=== PATIENT | male | born 1955 | race Caucasian/White ===

== ENCOUNTER 2017-02-27 12:03 | Inpatient (IN) | payer MEDICAID, OTHER ==
[~2017-02-27] VITALS: Ht 182.9 cm; Wt 107.1 kg
[2017-02-27] VITALS (7 sets, daily range): BP systolic 73–95; BP diastolic 46–64
[2017-02-27] MEDS ORDERED: NS 500 ML IV ONE (12:45)
[2017-02-27] MEDS ORDERED: FURO20TA2 PO (12:51)
[2017-02-27] MEDS ORDERED: LISI-538 PO (12:51)
[2017-02-27] MEDS ORDERED: SIMV20TA2 PO (12:51)
[2017-02-27] MEDS ORDERED: RISP3TAB20 PO (12:51)
[2017-02-27] MEDS ORDERED: METF10004 PO (12:51)
[2017-02-27] MEDS ORDERED: POTA10CA PO (12:51)
[2017-02-27] MEDS ORDERED: VITA200016 PO (12:51)
[2017-02-27] MEDS ORDERED: ALBU83IN INH (12:51)
[2017-02-27] MEDS ORDERED: ASPI81TA85 PO (12:51)
[2017-02-27 12:56] LABS: BASO # 0.1 10^3/uL (0.0-0.2); BASO % 0.5 % (0.0-1.0); EOS % 0.1 % (0.0-3.0); IMMATURE GRANULOCYTE % 4.4 % (0-0); LYMPH # 1.9 10^3/uL (1.5-4.5); LYMPH % 12.8 % (24.0-44.0); MEAN CORPUSCULAR HEMOGLOBIN 29.4 pg (27.0-33.0); MEAN CORPUSCULAR HGB CONC 33.3 g/dl (32.0-36.5); MEAN CORPUSCULAR VOLUME 88.5 fl (80.0-96.0); MONO # 0.8 10^3/uL (0.0-0.8); MONO % 5.1 % (0.0-5.0); NEUTROPHILS # 11.6 10^3/uL (1.8-7.7); NEUTROPHILS % 77.1 % (36.0-66.0); PLATELET COUNT, AUTOMATED 283 10^3/uL (150-450); RED CELL DISTRIBUTION WIDTH 16.3 % (11.5-14.5); WHITE BLOOD COUNT 15.1 10^3/uL (4.0-10.0)
[2017-02-27 13:21] LABS: ANION GAP 11 MEQ/L (8-16); BLOOD UREA NITROGEN 16 MG/DL (7-18); CALCIUM LEVEL 9.7 MG/DL (8.8-10.2); CARBON DIOXIDE LEVEL 24 MEQ/L (21-32); CHLORIDE LEVEL 100 MEQ/L (98-107); CREATININE FOR GFR 1.45 MG/DL (0.70-1.30); GLOMERULAR FILTRATION RATE 52.8 (>49); GLUCOSE, FASTING 119 MG/DL (80-110); POTASSIUM SERUM 4.6 MEQ/L (3.5-5.1); SODIUM LEVEL 135 MEQ/L (136-145)
[2017-02-27] MEDS ORDERED: DILUENT IV ONE (13:30)
[2017-02-27] MEDS ORDERED: NS IV ONE (13:30)
[2017-02-27] MEDS ORDERED: CEFEPIME HCL 2 GM in APPROPRIATE DILUENT 1 EA IV ONE (13:30)
[2017-02-27] MEDS ORDERED: DIGOXIN INJ 0.5 MG/2 ML AMP (J1160) IV ONE (13:45)
--- NOTE | 2017-02-27 13:54 | REP ---
PORTABLE CHEST: AP portable view of the chest is performed. Comparison made with a prior study of 11/16/2012. There is cardiomegaly. There is vascular congestion. There is a large right pleural effusion with a small left pleural effusion. There is bibasilar infiltrate. Findings are probably on the basis of congestive heart failure and pulmonary edema, but underlying pneumonia cannot be excluded. Signed by Vamsi Ansari MD 02/27/2017 04:08 P
[2017-02-27] MEDS: IPRATROPIUM HFA INHALER 12.9 GRAMS (ATROVENT HFA) INH SCH ×2 (14:00→21:37)
[2017-02-27 14:02] LABS: INR 1.08
[2017-02-27 14:08] LABS: ABG BASE EXCESS -0.9 (-2.0-2.0); ABG HCO3 21.2 MEQ/L (22.0-26.0); ABG PARTIAL PRESSURE CO2 28.2 mmHg (35.0-45.0); ABG PARTIAL PRESSURE O2 73.7 mmHg (75.0-100.0); ABG STANDARD HCO3 23.6 MEQ/L (22.0-26.0); ABG TOTAL CO2 22.1 MEQ/L (23.0-31.0); ABG pH (ARTERIAL) 7.494 UNITS (7.350-7.450)
[2017-02-27 14:14] LABS: ALBUMIN 1.7 GM/DL (3.2-5.2); ALBUMIN/GLOBULIN RATIO 0.37 (1.00-1.93); BILIRUBIN,DIRECT 0.2 MG/DL (0.0-0.2); BILIRUBIN,TOTAL 0.4 MG/DL (0.2-1.0); TOTAL PROTEIN 6.3 GM/DL (6.4-8.2)
--- NOTE | 2017-02-27 14:17 | REP ---
Clinical: Acute cough and dyspnea. Findings: There is a large mass/consolidation extending from the mediastinum into the right hemithorax along with multiple separate mediastinal and left hilar lymph nodes as well as intraluminal mass-density at the level of the jillian and essentially completely obstructing the right mainstem bronchus and multiple subsequent bronchi. Findings are most compatible with a mass lesion was not secondary postobstructive consolidations. A small right pleural effusion is also identified. Scattered ground-glass opacities and evidence for pulmonary vascular congestion with cephalization and prominent pulmonary vasculature is also appreciated bilaterally. The heart and pericardium appear relatively normal by noncontrast evaluation. Osseous structures demonstrate nonacute right seventh rib fracture. Impression: Mediastinal and right lung mass appears to infiltrate the jillian and right mainstem bronchus along with multiple subsequent bronchi causing postobstructive consolidations. Associated adenopathy and small/moderate right pleural effusion are identified. Findings are neoplastic unless proven otherwise. Signed by Sid Mckinnon MD 02/27/2017 02:09 P
[2017-02-27] MEDS ORDERED: DEXTROSE 50% 50 ML SYRINGE IV PRN (15:45)
[2017-02-27] MEDS ORDERED: GLUCOSE 4 GM CHEW TABLET PO PRN (15:45)
[2017-02-27] MEDS ORDERED: GLUCAGON FOR INJ 1 MG VIAL (J1610) SC PRN (15:45)
[2017-02-27] MEDS ORDERED: HEPARIN DRIP 25,000 UNITS in APPROPRIATE DILUENT 1 EA IV SCH (15:54)
[2017-02-27] MEDS ORDERED: NS 1,000 ML IV ONE ×2 (16:00→19:45)
[2017-02-27] MEDS ORDERED: HEPARIN SOD (PORCINE) 5000 UNITS/ML VIAL IV PRN (16:00)
[2017-02-27] MEDS ORDERED: METOPROLOL TART 25 MG TABLET PO ONE (16:00)
--- NOTE | 2017-02-27 16:03 | HPEPDOC ---
General Date of Admission Feb 27, 2017 at 15:34 Chief Complaint The patient is a 61-year-old male Presented to ER with complaints of difficulty breathing History of Present Illness Patient is a 61-year-old male with a PMHx of who presented to the ER with complaint of difficulty breathing. In the emergency room patient was found to have atrial fibrillation with rapid ventricular response at 150s and his BP was hypotensive at SBP of 60s. He was given a dose of digoxin IV and started on IV fluid hydration. After 1 hour, patients blood pressure had normalized and high rate had improved to 100s. Lab work indicated patient had elevation in creatinine, as well as white blood cell count and lactic acid. Imaging via CT chest was acquired in emergency room showed that he had a new right-sided lung mass. Hospitalist team was called for admission. Patient has noted that hes been having a productive cough with white colored sputum without any evidence of blood. He noted that he denied any chest pain, or palpitations. He did have difficulty breathing initially that has improved. He denied any fevers or chills at home. He denies any nausea, vomiting, abdominal pain or constipation. He does note that the last time he had a bowel movement, he had diarrhea. Patient has also noted some discomfort with urination. It has been noted that the patient has had 43 pound weight loss over the last 2 months. His appetite is normal. Patient is noted to have a significant smoking history over 200 pack years. Home Medications Scheduled Aspirin (Aspir-81) 81 Mg Tab, 81 MG PO DAILY, (Reported) Furosemide (Furosemide) 20 Mg Tab, 20 MG PO DAILY, (Reported) Lisinopril (Lisinopril) 20 Mg Tab, 20 MG PO DAILY, (Reported) Metformin Hydrochloride (Metformin HCl) 1,000 Mg Tab, 1,000 MG PO BID, (Reported ) Potassium Chloride (Klor-Con M10) 10 Meq Tabcr, 10 MEQ PO DAILY, (Reported) Risperidone (Risperdal) 3 Mg Tab, 3 MG PO QHS, (Reported) Simvastatin (Simvastatin) 20 Mg Tab, 20 MG PO QHS, (Reported) Vitamin D (Vitamin D) 2,000 Unit Cap, 2,000 UNIT PO QHS, (Reported) Scheduled PRN Albuterol Sulfate (Albuterol Sulfate) 2.5 Mg/3 Ml Nebu, 2.5 MG INH for SHORTNESS OF BREATH, (Reported) Allergies Coded Allergies: No Known Allergies (Unverified , 02/27/17) Past Medical History Medical History NIDDM2, DLP, Possible COPD, Chornic LBP and Arthritis Surgical History s/p Cholecystectomy (> 40 years prior) Family History - Non-contributory Social History - Denies the use of alcohol or illicit drugs; Smoker of 40 years at 5 ppd - Denies recent travel or sick contacts - Lives with room mate - 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; 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 Review of Symptoms Other systems Review of systems negative otherwise stated in HPI Vital Signs - Vitals: BP 117/69, HR 105, RR 22, Sat 93%RA2.0, Temp 98.8F - General: Lying in bed, No acute distress, Speaking in full sentences, AAOx3 - HEENT: NC, AT, PERRLA, EOMI - CVS: Tachycardic and irregular, +S1S2 - Lungs: Decreased lung sounds at right lung base - Abdomen: Soft, Non-distended, Non-tender, + Bowel sounds x 4 - Extremities: No lower extremity edema, No calf tenderness - Neuro: No focal motor or sensory deficit - Skin: No visible rashes Laboratory Data Labs 24H Laboratory Tests 2 02/27/17 12:28: Immature Granulocyte % (Auto) 4.4H, White Blood Count 15.1H, Red Blood Count 4.79, Hemoglobin 14.1, Hematocrit 42.4, Mean Corpuscular Volume 88.5, Mean Corpuscular Hemoglobin 29.4, Mean Corpuscular Hemoglobin Concent 33.3, Red Cell Distribution Width 16.3H, Platelet Count 283, Neutrophils (%) (Auto) 77.1H, Lymphocytes (%) (Auto) 12.8L, Monocytes (%) (Auto) 5.1H, Eosinophils (%) (Auto) 0.1, Basophils (%) (Auto) 0.5, Neutrophils # (Auto) 11.6H, Lymphocytes # (Auto) 1.9, Monocytes # (Auto) 0.8, Eosinophils # (Auto) 0.0, Basophils # (Auto) 0.1, Immature Granulocyte # (Auto) 0.7H, Nucleated Red Blood Cells % (auto) 0.6H, Anion Gap 11, Glomerular Filtration Rate 52.8, Lactic Acid Level 5.0*H, Blood Urea Nitrogen 16, Creatinine 1.45H, Sodium Level 135L, Potassium Level 4.6, Chloride Level 100, Carbon Dioxide Level 24, Calcium Level 9.7, Total Creatine Kinase 64, Creatine Kinase MB 1.4, Creatine Kinase MB Relative Index 2.18, Troponin I < 0.02 02/27/17 12:38: HH-Txh-Q-Type Natriuretic Peptide 299H, Thyroid Stimulating Hormone (TSH) 1.430 02/27/17 13:33: Prothrombin Time 14.2, Prothromb Time International Ratio 1.08, Activated Partial Thromboplast Time 24.7L, Urine Appearance HAZY, Urine Color YELLOW, Urine pH 5.0, Urine Specific Deport 1.012, Urine Protein NEGATIVE, Urine Glucose (UA) NEGATIVE, Urine Ketones NEGATIVE, Urine Urobilinogen 0.2, Urine Bilirubin NEGATIVE, Urine Leukocyte Esterase NEGATIVE, Urine Blood 1+H, Urine Nitrite NEGATIVE, Urine WBC (Auto) 4H, Urine RBC (Auto) 3, Urine Hyaline Casts ( Auto) 0, Urine Bacteria (Auto) 1+H, Urine Squamous Epithelial Cells 0, Urine Mucus (Auto) SMALL, Urine Sperm (Auto) , Aspartate Amino Transf (AST/SGOT) 68H, Alanine Aminotransferase (ALT/SGPT) 53, Alkaline Phosphatase 182H, Total Bilirubin 0.4, Direct Bilirubin 0.2, C-Reactive Protein, Quantitative 11.20H, Total Protein 6.3L, Albumin 1.7L, Albumin/Globulin Ratio 0.37L, Amylase Level 78 02/27/17 13:55: Blood Gas Bicarbonate Standard 23.6, Arterial Blood pH 7.494H, Arterial Blood Partial Pressure CO2 28.2L, Arterial Blood Partial Pressure O2 73.7L, Arterial Blood Total CO2 22.1L, Arterial Blood HCO3 21.2L, Arterial Blood Base Excess - 0.9, Arterial Blood Oxygen Saturation 94.3L CBC/BMP Laboratory Tests 02/27/17 12:28 Red Blood Count 4.79, Mean Corpuscular Volume 88.5, Mean Corpuscular Hemoglobin 29.4, Mean Corpuscular Hemoglobin Concent 33.3, Red Cell Distribution Width 16.3 H, Neutrophils (%) (Auto) 77.1 H, Lymphocytes (%) (Auto) 12.8 L, Monocytes (%) (Auto) 5.1 H, Eosinophils (%) (Auto) 0.1, Basophils (%) (Auto) 0.5, Neutrophils # (Auto) 11.6 H, Lymphocytes # (Auto) 1.9, Monocytes # (Auto) 0.8, Eosinophils # (Auto) 0.0, Basophils # (Auto) 0.1, Calcium Level 9.7, Total Creatine Kinase 64 Microbiology Microbiology 02/27/17 Blood Culture, Received Pending 02/27/17 Blood Culture, Received Pending 02/27/17 Influenza Virus Type A Antigen - Final, Complete 02/27/17 Influenza Virus Type B Antigen - Final, Complete 02/27/17 Urine Culture, Received Pending Plan / VTE VTE Prophylaxis Ordered?: Yes Plan Plan Dyspnea likely 2/2 new onset atrial fibrillation - Presented with a.fib with RVR with hypotension - s/p Digoxin IV in ER - HR and BP have improved - Will check ECHO, Thyroid function - Will start on Metoprolol tartrate 25mg q6h with holding parameters - Will start Heparin drip now Sepsis - likely 2/2 post-obstructive pneumonia - Reports productive cough - Elevated lactic acid and WBC - No fevers noted - CT chest 02/27: post-obstructive consolidation, right pleural effusion - f/u Blood cultures - BP has improved - c/w IV fluid hydration and will start Vancomycin and Zosyn Lung mass - suspected malignancy - Noted to have weight loss - CT chest 02/27: right lung mass infiltrate of the jillian and right main stem bronchus, associated adenopathy - Will get CT guided biopsy - Will have to hold Heparin infusion tomorrow prior to biopsy NIDDM2 - Will start ISS DLP - c/w Statin Possible COPD - c/w Xopenex PRN Chronic LBP / Arthritis - c/w Tylenol PRN Gastrointestinal prophylaxis - Will start Protonix DVT prophylaxis - Will start Heparin drip ROBERT BRITO MD Feb 27, 2017 16:03
[2017-02-27 16:30] LABS: FREE T4 1.72 NG/DL (0.76-1.46)
[2017-02-27] MEDS: HumaLOG INSULIN (NovoLOG) PER UNIT SC SCH ×2 (17:30→21:00)
[2017-02-27] MEDS: VANCOMYCIN HCL 1,000 MG, VIAL MATE ADAPTER 1 EACH in D5W 250 ML IV SCH (17:35)
[2017-02-27] MEDS ORDERED: VANCOMYCIN HCL 1,000 MG, VIAL MATE ADAPTER 1 EACH in D5W 250 ML IV ONE ×2 (18:00→22:00)
[2017-02-27] MEDS: PANTOPRAZOLE 40MG TAB (PROTONIX) PO SCH (18:28)
[2017-02-27] MEDS: NS 1,000 ML IV SCH (18:28)
[2017-02-27] MEDS ORDERED: INFLUENZA QUADRIVALENT PF VACCINE 0.5ML SYRINGE (90686) IM SCH (18:45)
[2017-02-27] MEDS ORDERED: PNEUMOCOCCAL VACCINE 0.5ML SYRINGE(90732) PNEUMOVAX 23 IM SCH (19:00)
[2017-02-27] MEDS: PIPERACILLIN/TAZOBACTAM SOD 3.375 GM in APPROPRIATE DILUENT 1 EA IV SCH (22:13)
[2017-02-27] MEDS: SIMVASTATIN 20 MG TAB PO SCH (22:13)
[2017-02-27] MEDS: VITAMIN D 1,000 INTERNATIONAL UNITS TABLET PO SCH (22:13)
[2017-02-27] MEDS: risperiDONE 3 MG TAB PO SCH (22:13)
--- NOTE | 2017-02-27 22:31 | PHACANCOPD ---
PHARMACY VANCOMYCIN DOSING Pt Demographics Demographics Patient Age:61 , Weight:106.360 , Gender: male Adjusted Body Weight Date: 02/27/17, Adjusted Body Weight: [89.104] Kg Events Past 24 Hours Events Past 24 Hours: YES: Elevation in WBC, Pending Diagnostics Vancomycin Vancomycin indication: MRSA coverage Vancomycin Target Ranges: 15-20 mcg/ml Vancomycin Load Y/N: Yes Load Dose Date Time Vancomycin Load Dose: 2g Date: 02/27/17 Time: 1700 Vancomycin Dose Date: 02/27/17. Current Vancomycin Dose: [1g IV Q12H] Intermittent Dosing?: No Labs Labs Item Value Date Time White Blood Count 15.1 10^3/uL H 02/27/17 1228 Lactic Acid Followup at 4 Hours 2.1 MMOL/L *H 02/27/17 1659 Lactic Acid Level 2.6 MMOL/L *H 02/27/17 2100 C-Reactive Protein, Quantitative 11.20 MG/DL H 02/27/17 1333 Micro Microbiology 02/27/17 Blood Culture, Received Pending 02/27/17 Blood Culture, Received Pending 02/27/17 Influenza Virus Type A Antigen - Final, Complete 02/27/17 Influenza Virus Type B Antigen - Final, Complete 02/27/17 Urine Culture, Received Pending Creatinine Clearance Date:02/27/17. Estimated Creatinine Clearance: [~59.5ml/min]. Assessment and Plan Maintaining Current Dose?: Yes Reason for dose change: No Dose Change Pharmacist Note Pharmacist Note Date: 02/27/17. Pharmacist note: Day #1 empiric vancomycin tx initiated with a 2g loading dose, followed by a maintenance regimen of 1g IV Q12H for the treatment of sepsis - aiming for a goal trough of 15-20mcg/ml. WBC, CRP, LA, pulse, and RR are all elevated on admission. No PMH of MRSA or vanco use here at [facility]. Blood and urine cultures are pending. Negative for influenza. We will continue to monitor and schedule a trough/make dose adjustments accordingly. IJEOMA DUARTE [facility] Feb 27, 2017 22:31
[2017-02-28] VITALS (21 sets, daily range): BP systolic 87–117; BP diastolic 53–70
[2017-02-28] MEDS: IPRATROPIUM HFA INHALER 12.9 GRAMS (ATROVENT HFA) INH SCH ×3 (01:46→20:53)
[2017-02-28] MEDS: PIPERACILLIN/TAZOBACTAM SOD 3.375 GM in APPROPRIATE DILUENT 1 EA IV SCH ×3 (03:36→18:36)
[2017-02-28 05:09] LABS: MEAN CORPUSCULAR HEMOGLOBIN 29.7 pg (27.0-33.0); MEAN CORPUSCULAR VOLUME 90.2 fl (80.0-96.0); PLATELET COUNT, AUTOMATED 189 10^3/uL (150-450); RED CELL DISTRIBUTION WIDTH 16.3 % (11.5-14.5); WHITE BLOOD COUNT 13.7 10^3/uL (4.0-10.0)
[2017-02-28 05:16] LABS: ADD MANUAL DIFFER YES; DIFF SLIDE NUMBER 97; POS COUNT POS FLAG; POSITIVE MORPH POS FLAG
[2017-02-28 05:33] LABS: ALBUMIN 1.6 GM/DL (3.2-5.2); ALKALINE PHOSPHATASE 156 U/L (45-117); ALT/SGPT 52 U/L (12-78); ANION GAP 9 MEQ/L (8-16); AST/SGOT 65 U/L (7-37); BILIRUBIN,TOTAL 0.5 MG/DL (0.2-1.0); BLOOD UREA NITROGEN 18 MG/DL (7-18); CALCIUM LEVEL 8.4 MG/DL (8.8-10.2); CARBON DIOXIDE LEVEL 23 MEQ/L (21-32); CHLORIDE LEVEL 105 MEQ/L (98-107); CREATININE FOR GFR 1.18 MG/DL (0.70-1.30); GLOMERULAR FILTRATION RATE > 60.0 (>49); GLUCOSE, FASTING 97 MG/DL (80-110); MAGNESIUM LEVEL 1.8 MG/DL (1.8-2.4); POTASSIUM SERUM 4.1 MEQ/L (3.5-5.1); SODIUM LEVEL 137 MEQ/L (136-145); TOTAL PROTEIN 5.6 GM/DL (6.4-8.2)
--- NOTE | 2017-02-28 05:42 | ECGEPIP ---
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
[2017-02-28] MEDS: METOPROLOL TART 12.5 MG PER 1/2 TAB PO SCH ×4 (06:00→18:00)
[2017-02-28] MEDS: VANCOMYCIN HCL 1,000 MG, VIAL MATE ADAPTER 1 EACH in D5W 250 ML IV SCH ×2 (06:15→18:37)
[2017-02-28 07:02] LABS: ANISOCYTOSIS 1+; BANDS 2 % (< 11); EOSINOPHILS 1 % (0-5)
[2017-02-28] MEDS: NS 1,000 ML IV SCH ×3 (07:18→18:40)
[2017-02-28] MEDS: HumaLOG INSULIN (NovoLOG) PER UNIT SC SCH ×4 (07:30→20:58)
--- NOTE | 2017-02-28 08:21 | IPNPDOC ---
Date Seen The patient was seen on 02/28/17. Progress Note SUBJECTIVE: Patient is a 61-year-old male with shortness of breath found to have mediastinal and right lung mass with infiltrate around the jillian and right mainstem bronchus showing post-obstructive consolidations. Patient is evaluated at bedside this morning. He is sitting on the edge of the bed with his legs dangling over the edge. He is inquiring about breakfast. Admits to new onset arthritic pain in his low back and right lower leg. Denies numbness, tingling, chest pain, fever, night sweats, chills. Admits to shortness of breath with a productive cough. States that he is coughing up phlegm. Informed patient that flu testing was negative. Would like Wells catheter taken out. Have explained to patient what the plan is for today regarding the CT guided biopsy. He is aware of the plan. Discussed with patient that Wells catheter will remain in place until several hours after biopsy as patient needs to remain on bedrest for several hours after biopsy. Patient is somewhat grumpy after getting this news. Have advised patient not to irritate or pull on Wells catheter. OBJECTIVE PHYSICAL EXAMINATION: VITAL SIGNS: Please see below. GENERAL: Obese male, appears somewhat grubby, wearing hospital gown, nasal cannula in place, appears older than stated age, no acute distress HEENT: Atraumatic, normocephalic, PERRL, EOMI, oral mucosa appears pink and moist, dentition is poor, no lymphadenopathy, full de CARDIOVASCULAR: Cardiac examination somewhat difficult to appreciate, regular rate and rhythm, normal S1 and S2, no murmur, rub, click RESPIRATORY: Coarse breath sounds throughout, diminished lung sounds appreciated in the right lower lobe, dullness to percussion in the right lower lobe ABDOMINAL: Round, soft, non-distended, non-tender, bowel sounds appreciated EXTREMITIES: Radial and posterior tibial pulses appreciated and equal, symmetrical, +2, without peripheral edema NEUROLOGICAL: CN II-XII grossly intact PSYCHOLOGICAL: Alert and conversant, grumpy LABORATORY DATA: Please see below. MICROBIOLOGY: Please see below. IMAGING: Portable chest x-ray FINDINGS: There is cardiomegaly. There is vascular congestion. There is a large right pleural effusion with a small left pleural effusion. There is bibasilar infiltrate. Findings are probably on the basis of congestive heart failure and pulmonary edema, but underlying pneumonia cannot be excluded. CT chest without contrast IMPRESSION: Mediastinal and right lung mass appears to infiltrate the jillian and right mainstem bronchus along with multiple subsequent bronchi causing postobstructive consolidations. Associated adenopathy and small/moderate right pleural effusion are identified. Findings are neoplastic unless proven otherwise. DVT prophylaxis ordered?: Heparin, therapeutic dosing ASSESSMENT AND PLAN: This is a 61-year-old male with shortness of breath found to have mediastinal and right lung mass with an infiltrate of the jillian and right mainstem bronchus along with multiple subsequent bronchi causing post-obstructive consolidations, likely neoplastic. PROBLEMS: 1. Post-obstructive pneumonia: Leukocytosis is improving. Currently on Vancomycin and Zosyn. Blood cultures are pending. Lactic acid has returned to baseline. Influenza testing was negative. 2. Lung mass: See CT chest without contrast impression for further explanation. CT-guided biopsy scheduled for today. Patient will be bedrest after procedure for several hours. Wells catheter to remain in place until after procedure. On therapeutic Heparin dosing, but has been held prior to procedure. 3. Hypotension: Currently resuscitated with IVF. NS @100mLs/hr. Received sepsis protocol fluid resuscitation. Blood pressure still a little soft. Could consider a central line if pressure remains soft or drops. 4. New-onset atrial fibrillation: Nothing seen on telemetry this AM. Metoprolol with hold parameters. Heparin, therapeutic dosing, currently on hold for procedure. 5. Diabetes mellitus: Sliding scale insulin, fingersticks before meals and at bedtime, hypoglycemic protocol. 6. COPD: Continue with Atrovent. 7. Dyslipidemia: Continue with Simvastatin. 8. Vitamin D deficiency: Continue with supplementation. 9. Insomnia: Continue with Risperdal. DISPOSITION: Admitted to the ICU. Pending CT-guided biopsy. VS, I&O, 24H, Fishbone Vital Signs/I&O Vital Signs Date Time Temp Pulse Resp B/P (MAP) Pulse Ox O2 Delivery O2 Flow Rate FiO2 02/28/17 06:00 88 24 100/65 (77) 91 Nasal Cannula 2.0 02/28/17 04:00 97.3 I&O- Last 24 Hours up to 6 AM 03/01/17 06:00 Intake Total 270 ml Balance 270 ml Laboratory Data 24H LABS Laboratory Tests 2 02/27/17 12:28: Immature Granulocyte % (Auto) 4.4H, White Blood Count 15.1H, Red Blood Count 4.79, Hemoglobin 14.1, Hematocrit 42.4, Mean Corpuscular Volume 88.5, Mean Corpuscular Hemoglobin 29.4, Mean Corpuscular Hemoglobin Concent 33.3, Red Cell Distribution Width 16.3H, Platelet Count 283, Neutrophils (%) (Auto) 77.1H, Lymphocytes (%) (Auto) 12.8L, Monocytes (%) (Auto) 5.1H, Eosinophils (%) (Auto) 0.1, Basophils (%) (Auto) 0.5, Neutrophils # (Auto) 11.6H, Lymphocytes # (Auto) 1.9, Monocytes # (Auto) 0.8, Eosinophils # (Auto) 0.0, Basophils # (Auto) 0.1, Immature Granulocyte # (Auto) 0.7H, Nucleated Red Blood Cells % (auto) 0.6H, Anion Gap 11, Glomerular Filtration Rate 52.8, Lactic Acid Level 5.0*H, Blood Urea Nitrogen 16, Creatinine 1.45H, Sodium Level 135L, Potassium Level 4.6, Chloride Level 100, Carbon Dioxide Level 24, Calcium Level 9.7, Total Creatine Kinase 64, Creatine Kinase MB 1.4, Creatine Kinase MB Relative Index 2.18, Troponin I < 0.02 02/27/17 12:38: MN-Jcs-[id number]-Type Natriuretic Peptide 299H, Thyroid Stimulating Hormone (TSH) 1.430 , Free Thyroxine 1.72H 02/27/17 13:33: Prothrombin Time 14.2, Prothromb Time International Ratio 1.08, Activated Partial Thromboplast Time 24.7L, Urine Appearance HAZY, Urine Color YELLOW, Urine pH 5.0, Urine Specific Carbon 1.012, Urine Protein NEGATIVE, Urine Glucose (UA) NEGATIVE, Urine Ketones NEGATIVE, Urine Urobilinogen 0.2, Urine Bilirubin NEGATIVE, Urine Leukocyte Esterase NEGATIVE, Urine Blood 1+H, Urine Nitrite NEGATIVE, Urine WBC (Auto) 4H, Urine RBC (Auto) 3, Urine Hyaline Casts ( Auto) 0, Urine Bacteria (Auto) 1+H, Urine Squamous Epithelial Cells 0, Urine Mucus (Auto) SMALL, Urine Sperm (Auto) , Aspartate Amino Transf (AST/SGOT) 68H, Alanine Aminotransferase (ALT/SGPT) 53, Alkaline Phosphatase 182H, Total Bilirubin 0.4, Direct Bilirubin 0.2, C-Reactive Protein, Quantitative 11.20H, Total Protein 6.3L, Albumin 1.7L, Albumin/Globulin Ratio 0.37L, Amylase Level 78 02/27/17 13:55: Blood Gas Bicarbonate Standard 23.6, Arterial Blood pH 7.494H, Arterial Blood Partial Pressure CO2 28.2L, Arterial Blood Partial Pressure O2 73.7L, Arterial Blood Total CO2 22.1L, Arterial Blood HCO3 21.2L, Arterial Blood Base Excess - 0.9, Arterial Blood Oxygen Saturation 94.3L 02/27/17 16:59: Lactic Acid Followup at 4 Hours 2.1*H 02/27/17 18:15: Total Creatine Kinase 65, Creatine Kinase MB 1.8, Creatine Kinase MB Relative Index 2.76, Troponin I 0.03# 02/27/17 21:00: Lactic Acid Level 2.6*H 02/27/17 22:00: Bedside Glucose (Misc Panel) 124H 02/27/17 23:58: Activated Partial Thromboplast Time 37.9 02/27/17 23:59: Total Creatine Kinase 62, Creatine Kinase MB 1.9, Creatine Kinase MB Relative Index 3.06, Troponin I 0.02# 02/28/17 01:17: Lactic Acid Followup at 4 Hours 1.6 02/28/17 04:59: Immature Granulocyte % (Auto) , Nucleated Red Blood Cells % (auto) 0.3H, Neutrophils 77H, Band Neutrophils 2, Lymphocytes (Manual) 13L, Monocytes (Manual ) 3, Eosinophils (Manual) 1, Metamyelocytes 2H, Myelocytes 2H, Platelet Estimate NORMAL, Anisocytosis 1+, Anion Gap 9, Glomerular Filtration Rate > 60.0 , Blood Urea Nitrogen 18, Creatinine 1.18, Sodium Level 137, Potassium Level 4.1 , Chloride Level 105, Carbon Dioxide Level 23, Calcium Level 8.4L, Aspartate Amino Transf (AST/SGOT) 65H, Alanine Aminotransferase (ALT/SGPT) 52, Alkaline Phosphatase 156H, Total Bilirubin 0.5, Total Protein 5.6L, Albumin 1.6L, Magnesium Level 1.8, C-Reactive Protein, Quantitative 14.20H, Albumin/Globulin Ratio 0.40L CBC/BMP Laboratory Tests 02/27/17 12:28 Red Blood Count 4.79, Mean Corpuscular Volume 88.5, Mean Corpuscular Hemoglobin 29.4, Mean Corpuscular Hemoglobin Concent 33.3, Red Cell Distribution Width 16.3 H, Neutrophils (%) (Auto) 77.1 H, Lymphocytes (%) (Auto) 12.8 L, Monocytes (%) (Auto) 5.1 H, Eosinophils (%) (Auto) 0.1, Basophils (%) (Auto) 0.5, Neutrophils # (Auto) 11.6 H, Lymphocytes # (Auto) 1.9, Monocytes # (Auto) 0.8, Eosinophils # (Auto) 0.0, Basophils # (Auto) 0.1, Calcium Level 9.7, Total Creatine Kinase 64 02/28/17 04:59 Red Blood Count 3.87 L, Mean Corpuscular Volume 90.2, Mean Corpuscular Hemoglobin 29.7, Mean Corpuscular Hemoglobin Concent 33.0, Red Cell Distribution Width 16.3 H, Calcium Level 8.4 L, Aspartate Amino Transf (AST/SGOT ) 65 H, Alanine Aminotransferase (ALT/SGPT) 52, Alkaline Phosphatase 156 H, Total Bilirubin 0.5, Total Protein 5.6 L, Albumin 1.6 L Microbiology Microbiology 02/27/17 Blood Culture, Received Pending 02/27/17 Blood Culture, Received Pending 02/27/17 Influenza Virus Type A Antigen - Final, Complete 02/27/17 Influenza Virus Type B Antigen - Final, Complete 02/27/17 Urine Culture, Received Pending PARISH MILLAN DO Feb 28, 2017 08:21
[2017-02-28] MEDS: ASPIRIN 81 MG ENTERIC TAB PO SCH (09:13)
[2017-02-28] MEDS: PANTOPRAZOLE 40MG TAB (PROTONIX) PO SCH (09:13)
--- NOTE | 2017-02-28 20:11 | ECHO ---
DATE OF PROCEDURE: 02/28/2017 AGE: 61 GENDER: Male HEIGHT: 72 inches WEIGHT: 233 pounds BODY SURFACE AREA: 2.28 m2. PATIENT LOCATION: Inpatient, PCU, room 3210 REFERRING PHYSICIAN: Rain Osborne MD INDICATION: Abnormal EKG. Atrophic paroxysmal atrial fibrillation. 2-D MEASUREMENTS: RV: 4.2 cm LV: 4.3 cm Septum: 1.1 cm Posterior wall: 0.9 cm Aortic root: 3.3 cm LA: 3.2 cm LVEF: 65% DOPPLER MEASUREMENTS: AV: 1.8 m/s LVOT: 1.4 m/s LVOT diameter: 2.2 cm MV-E: 100, A: 100, EA ratio: 1 Early mitral deceleration time: 180 ms E prime: 6.38, A prime: 18, E/A prime ratio: 15 PV: 0.8 m/s Pulmonary artery acceleration time: 99 ms RVSP: 49 mmHg IVC: 2.3 cm COMMENTS: Normal sinus rhythm without interventricular conduction disturbance. Normal left heart chamber sizes. At least mildly dilated right heart chambers. Normal LV wall thickness. On real-time imaging from the parasternal and apical projections wall motion was symmetrical and hyperkinetic. Normal-appearing mitral valvular apparatus and leaflet excursion with no posterior systolic buckling. Three equal size aortic cusps of normal thickness and cusp separation. Normal aortic root size. No apparent intracardiac mass or pericardial effusion. Color flow Doppler study taken from the parasternal and apical projections showed no mitral or aortic insufficiency and at least mild tricuspid insufficiency. Guided continuous wave Doppler of his aortic valve showed a normal peak systolic velocity against LV outflow tract obstruction. Pulsed and continuous wave Doppler of his LV inflow tract taken from the apical four-chamber projection showed normal diastolic filling velocities and pattern. This would be against mitral stenosis or significant LV diastolic dysfunction. Pulsed and continuous wave Doppler of his pulmonary trunk showed a normal peak systolic velocity against RV outflow tract obstruction but his pulmonary artery acceleration time was significantly abbreviated consistent with an elevated pulmonary vascular resistance. Guided continuous wave Doppler of his tricuspid valve allowed our estimation of his right ventricular systolic pressure (at least moderately increased). His inferior vena cava was mildly dilated but appeared to collapse normally against an elevated central venous pressure at this time. CONCLUSIONS: Normal left ventricular size, wall thickness and hyperkinetic wall motion. Normal left atrial size and Doppler assessment of LV diastolic function. At least mildly dilated right heart chambers with normal contraction with Doppler evidence of at least moderate pulmonary hypertension. Mildly dilated inferior vena cava, but normal respiratory collapse against an elevated central venous pressure at this time.
[2017-02-28] MEDS: SIMVASTATIN 20 MG TAB PO SCH (20:13)
[2017-02-28] MEDS: VITAMIN D 1,000 INTERNATIONAL UNITS TABLET PO SCH (20:13)
[2017-02-28] MEDS: risperiDONE 3 MG TAB PO SCH (20:13)
[2017-03-01] VITALS (9 sets, daily range): BP systolic 100–120; BP diastolic 60–77
[2017-03-01] MEDS: PIPERACILLIN/TAZOBACTAM SOD 3.375 GM in APPROPRIATE DILUENT 1 EA IV SCH ×4 (00:17→18:22)
[2017-03-01] MEDS: IPRATROPIUM HFA INHALER 12.9 GRAMS (ATROVENT HFA) INH SCH ×4 (01:16→20:35)
[2017-03-01 05:10] LABS: MEAN CORPUSCULAR HEMOGLOBIN 29.2 pg (27.0-33.0); MEAN CORPUSCULAR HGB CONC 32.4 g/dl (32.0-36.5); PLATELET COUNT, AUTOMATED 181 10^3/uL (150-450); RED CELL DISTRIBUTION WIDTH 16.3 % (11.5-14.5)
[2017-03-01 05:14] LABS: ADD MANUAL DIFFER YES; DIFF SLIDE NUMBER 60; POS COUNT POS FLAG; POSITIVE MORPH POS FLAG
[2017-03-01 05:28] LABS: ALBUMIN 1.6 GM/DL (3.2-5.2); ALBUMIN/GLOBULIN RATIO 0.42 (1.00-1.93); ALKALINE PHOSPHATASE 173 U/L (45-117); ALT/SGPT 52 U/L (12-78); ANION GAP 8 MEQ/L (8-16); AST/SGOT 61 U/L (7-37); BILIRUBIN,TOTAL 0.3 MG/DL (0.2-1.0); BLOOD UREA NITROGEN 15 MG/DL (7-18); CALCIUM LEVEL 8.7 MG/DL (8.8-10.2); CARBON DIOXIDE LEVEL 23 MEQ/L (21-32); CHLORIDE LEVEL 105 MEQ/L (98-107); CREATININE FOR GFR 0.88 MG/DL (0.70-1.30); GLOMERULAR FILTRATION RATE > 60.0 (>49); GLUCOSE, FASTING 109 MG/DL (80-110); MAGNESIUM LEVEL 1.7 MG/DL (1.8-2.4); POTASSIUM SERUM 3.8 MEQ/L (3.5-5.1); SODIUM LEVEL 136 MEQ/L (136-145); TOTAL PROTEIN 5.4 GM/DL (6.4-8.2)
--- NOTE | 2017-03-01 05:33 | PHACANCOPD ---
PHARMACY VANCOMYCIN DOSING Pt Demographics Demographics Patient Age:61 , Weight:113.900 , Gender: male Adjusted Body Weight Date: 02/27/17, Adjusted Body Weight: [89.104] Kg Events Past 24 Hours Events Past 24 Hours: NO: Dialysis, Diuretic Therapy, Change in CrCl, Fever, Elevation in WBC, Pending Diagnostics, Pending Procedures, Other Vancomycin Vancomycin indication: MRSA coverage Vancomycin Target Ranges: 15-20 mcg/ml Vancomycin Load Y/N: Yes Load Dose Date Time Vancomycin Load Dose: 2g Date: 02/27/17 Time: 1700 Vancomycin Dose Date: 02/27/17. Current Vancomycin Dose: [1g IV Q12H] Intermittent Dosing?: No Labs Labs Item Value Date Time White Blood Count 12.0 10^3/uL H 03/01/17451 Creatinine 0.88 MG/DL 03/01/17451 Blood Urea Nitrogen 15 MG/DL 03/01/17451 Vancomycin Level Trough 15.5 UG/ML 03/01/17451 Vital Signs Label Value Date Time Patient Temperature 97.7 degrees F 03/01/17 0001 Temperature Source Temporal 03/01/17 0001 Micro Microbiology 02/27/17 Blood Culture - Preliminary, Resulted No growth after 24 hours . All specim... 02/27/17 Blood Culture - Preliminary, Resulted No growth after 24 hours . All specim... 02/27/17 Influenza Virus Type A Antigen - Final, Complete 02/27/17 Influenza Virus Type B Antigen - Final, Complete 02/27/17 Urine Culture, Received Pending Creatinine Clearance Date:02/27/17. Estimated Creatinine Clearance: [~59.5ml/min]. Assessment and Plan Maintaining Current Dose?: Yes Reason for dose change: No Dose Change Pharmacist Note Pharmacist Note Date: 02/27/17. Pharmacist note: trough of 15.5 is within target range. Will continue current dosing. Will continue to monitor and make adjustments as needed. [facility] Mar 01, 2017 05:33
[2017-03-01] MEDS: VANCOMYCIN HCL 1,000 MG, VIAL MATE ADAPTER 1 EACH in D5W 250 ML IV SCH ×2 (05:52→16:38)
[2017-03-01] MEDS: METOPROLOL TART 12.5 MG PER 1/2 TAB PO SCH ×4 (05:53→18:00)
[2017-03-01] MEDS: NS 1,000 ML IV SCH (06:00)
[2017-03-01] MEDS ORDERED: MAG SULF 1GM/100ML (MAG RUN) 1 GM in APPROPRIATE DILUENT 1 EA IV ONE (07:15)
[2017-03-01 07:16] LABS: ANISOCYTOSIS 1+; BANDS 1 % (< 11); EOSINOPHILS 2 % (0-5)
[2017-03-01] MEDS: HumaLOG INSULIN (NovoLOG) PER UNIT SC SCH ×4 (07:51→20:55)
[2017-03-01] MEDS: MAGNESIUM OXIDE 400 MG TAB (MAG-OX) PO SCH ×2 (08:27→20:51)
[2017-03-01] MEDS: ASPIRIN 81 MG ENTERIC TAB PO SCH (08:28)
[2017-03-01] MEDS: PANTOPRAZOLE 40MG TAB (PROTONIX) PO SCH (08:28)
--- NOTE | 2017-03-01 08:38 | IPNPDOC ---
Date Seen The patient was seen on 03/01/17. Progress Note SUBJECTIVE: Patient is a 61-year-old male with post-obstructive pneumonia secondary to right hilar mass. Patient is evaluated at bedside this morning. He initially told my attending that he did not want to have the CT- guided biopsy performed this morning. However, during my evaluation he has decided that he would like to go ahead and have the biopsy done. He states that his breathing has improved. Continues with productive cough that he describes as milky white in color. Denies fever, night sweats, chills. OBJECTIVE PHYSICAL EXAMINATION: VITAL SIGNS: Please see below. GENERAL: Obese male, somewhat grubby and raged appearing, appears older than stated age, wearing hospital gown, no acute distress HEENT: Atraumatic, normocephalic, PERRL, EOMI, oral mucosa appears pink and moist, nasal septum with NC in place, nares are patent, full de CARDIOVASCULAR: Somewhat difficult to appreciate, regular rate and rhythm, normal S1 and S2, no murmur, rub, click RESPIRATORY: Coarse breath sounds throughout, adequate inspiratory and expiratory airway excursion, no wheeze appreciated ABDOMINAL: Round, soft, non-tender, non-distended, no organomegaly, no rebound, no guarding, bowel sounds somewhat diminished EXTREMITIES: Dry skin appreciated, mild stasis dermatitis appreciated on lower extremities bilaterally, radial and posterior tibial pulses equal and symmetrical, +2, without edema NEUROLOGICAL: CN II-XII grossly intact PSYCHOLOGICAL: Alert and conversant LABORATORY DATA: Please see below. MICROBIOLOGY: Please see below. DVT prophylaxis ordered?: TEDs and sequentials, knee high compression ASSESSMENT AND PLAN: This is a 61-year-old male with post-obstructive pneumonia secondary to right lung mass. PROBLEMS: 1. Post-obstructive pneumonia: Leukocytosis is improving. Currently on Vancomycin and Zosyn. Blood cultures are negative. Remains on oxygen via NC with saturations > 90%. 2. Lung mass: Patient scheduled for CT-guided biopsy today. 3. Hypomagnesemia: Replenishment provided. 4. Hypotension: Likely secondary to volume depletion. Currently resuscitated with IVF NS @100mLs/hr. SBP in the low 100s. Continue to monitor. Transfer to PCU. 5. New-onset atrial fibrillation: Nothing seen on telemetry this AM. Metoprolol with hold parameters. No anticoagulation at this time. Likely secondary to post-obstructive pneumonia and lung mass. 6. Diabetes mellitus: Sliding scale insulin, fingersticks before meals and at bedtime, hypoglycemic protocol. 7. COPD: Continue with Atrovent. 8. Dyslipidemia: Continue with Simvastatin. 9. Vitamin D deficiency: Continue with supplementation. 10. Insomnia: Continue with Risperdal. DISPOSITION: Transfer to PCU. Scheduled for CT-guided biopsy fo right lung mass. VS, I&O, 24H, Fishbone Vital Signs/I&O Vital Signs Date Time Temp Pulse Resp B/P (MAP) Pulse Ox O2 Delivery O2 Flow Rate FiO2 03/01/17 07:55 Nasal Cannula 2.0 03/01/17 07:54 98.1 88 20 102/62 (75) 93 Laboratory Data 24H LABS Laboratory Tests 2 02/28/17 18:34: Bedside Glucose (Misc Panel) 145H 02/28/17 20:18: Bedside Glucose (Misc Panel) 155H 03/01/17 04:52: Immature Granulocyte % (Auto) , Nucleated Red Blood Cells % (auto) 0.3H, Neutrophils 73, Band Neutrophils 1, Lymphocytes (Manual) 19, Monocytes (Manual) 1, Eosinophils (Manual) 2, Metamyelocytes 1H, Myelocytes 3H, Platelet Estimate NORMAL, Anisocytosis 1+, Anion Gap 8, Glomerular Filtration Rate > 60.0, Blood Urea Nitrogen 15, Creatinine 0.88, Sodium Level 136, Potassium Level 3.8, Chloride Level 105, Carbon Dioxide Level 23, Calcium Level 8.7L, Aspartate Amino Transf (AST/SGOT) 61H, Alanine Aminotransferase (ALT/SGPT) 52, Alkaline Phosphatase 173H, Total Bilirubin 0.3, Total Protein 5.4L, Albumin 1.6L, Magnesium Level 1.7L, C-Reactive Protein, Quantitative 9.34H, Albumin/Globulin Ratio 0.42L, Vancomycin Level Trough 15.5 CBC/BMP Laboratory Tests 03/01/17 04:52 Red Blood Count 3.70 L, Mean Corpuscular Volume 90.0, Mean Corpuscular Hemoglobin 29.2, Mean Corpuscular Hemoglobin Concent 32.4, Red Cell Distribution Width 16.3 H, Calcium Level 8.7 L, Aspartate Amino Transf (AST/SGOT ) 61 H, Alanine Aminotransferase (ALT/SGPT) 52, Alkaline Phosphatase 173 H, Total Bilirubin 0.3, Total Protein 5.4 L, Albumin 1.6 L Microbiology Microbiology 02/27/17 Blood Culture - Preliminary, Resulted No growth after 24 hours . All specim... 02/27/17 Blood Culture - Preliminary, Resulted No growth after 24 hours . All specim... 02/27/17 Influenza Virus Type A Antigen - Final, Complete 02/27/17 Influenza Virus Type B Antigen - Final, Complete 02/27/17 Urine Culture, Received Pending PARISH MILLAN DO Mar 01, 2017 08:38
[2017-03-01] MEDS ORDERED: LIDOCAINE 1% MDV 20ML VIAL As Ordered ONE (11:28)
--- NOTE | 2017-03-01 14:34 | REP ---
CT GUIDED RIGHT LUNG BIOPSY: The procedure was performed by FELICITAS Mckoy under direct supervision of Dr. Ansari. The procedure, along with its risks, benefits and complications were discussed with the patient prior to the examination. Informed consent was obtained both verbally and written. The patient was identified in the CT suite and placed in the supine position. The areas of interest was localized under CT guidance. The area was marked, prepped and draped in the usual sterile fashion. A procedural time-out was performed to ensure that the correct patient, site and procedure were being performed. The needle was inserted under CT guidance and advanced to the area of interest. Four core biopsy specimens were obtained. These were placed in Formalin and sent to the lab for further evaluation. The results are pending. Post procedural imaging revealed no significant pneumothorax. The patient tolerated the procedure well and had no immediate complications. IMPRESSION: Uncomplicated CT-guided right lung mass biopsy yielding four core biopsy specimens. The results are pending. Reviewed by FELICITAS Mckoy 03/01/2017 05:04 PEdited and Signed by Vamsi Ansari MD 03/06/2017 05:09 Rosemarie
--- NOTE | 2017-03-01 15:11 | REP ---
CHEST: Single view of the chest is performed status post right lung biopsy. There is no pneumothorax. There is a large right effusion with adjacent right lung consolidation. No definite infiltrate is seen on the left. Signed by Vamsi Ansari MD 03/01/2017 03:19 P
[2017-03-01] MEDS ORDERED: SLF 3 ML SYR IV PRN (16:30)
[2017-03-01] MEDS: SIMVASTATIN 20 MG TAB PO SCH (20:51)
[2017-03-01] MEDS: risperiDONE 3 MG TAB PO SCH (20:51)
[2017-03-01] MEDS: VITAMIN D 1,000 INTERNATIONAL UNITS TABLET PO SCH (20:51)
[2017-03-01] MEDS: SLF 3 ML SYR IV SCH (20:55)
[2017-03-01] MEDS: ACETAMINOPHEN TAB 650MG DOSE (2X325MG) PO PRN (21:28)
[2017-03-02] VITALS (7 sets, daily range): BP systolic 107–137; BP diastolic 58–88
[2017-03-02] MEDS ORDERED: HumaLOG INSULIN (NovoLOG) PER UNIT SC SCH
[2017-03-02] MEDS: METOPROLOL TART 12.5 MG PER 1/2 TAB PO SCH ×5 (00:01→23:52)
[2017-03-02] MEDS: PIPERACILLIN/TAZOBACTAM SOD 3.375 GM in APPROPRIATE DILUENT 1 EA IV SCH ×4 (00:02→18:18)
[2017-03-02] MEDS: IPRATROPIUM HFA INHALER 12.9 GRAMS (ATROVENT HFA) INH SCH ×3 (02:00→13:57)
[2017-03-02] MEDS: ACETAMINOPHEN TAB 650MG DOSE (2X325MG) PO PRN (03:10)
[2017-03-02] MEDS: VANCOMYCIN HCL 1,000 MG, VIAL MATE ADAPTER 1 EACH in D5W 250 ML IV SCH ×2 (05:29→16:59)
[2017-03-02] MEDS: SLF 3 ML SYR IV SCH ×3 (05:29→21:26)
[2017-03-02 05:46] LABS: MEAN CORPUSCULAR HGB CONC 31.9 g/dl (32.0-36.5); MEAN CORPUSCULAR VOLUME 90.9 fl (80.0-96.0); PLATELET COUNT, AUTOMATED 181 10^3/uL (150-450); RED CELL DISTRIBUTION WIDTH 16.5 % (11.5-14.5); WHITE BLOOD COUNT 10.9 10^3/uL (4.0-10.0)
[2017-03-02 05:50] LABS: ADD MANUAL DIFFER YES; DIFF SLIDE NUMBER 31; POS COUNT POS FLAG; POSITIVE MORPH POS FLAG
[2017-03-02 05:57] LABS: ALBUMIN 1.7 GM/DL (3.2-5.2); ALBUMIN/GLOBULIN RATIO 0.39 (1.00-1.93); ALKALINE PHOSPHATASE 226 U/L (45-117); ALT/SGPT 60 U/L (12-78); ANION GAP 9 MEQ/L (8-16); AST/SGOT 66 U/L (7-37); BILIRUBIN,TOTAL 0.3 MG/DL (0.2-1.0); BLOOD UREA NITROGEN 11 MG/DL (7-18); CALCIUM LEVEL 8.9 MG/DL (8.8-10.2); CARBON DIOXIDE LEVEL 25 MEQ/L (21-32); CHLORIDE LEVEL 105 MEQ/L (98-107); CREATININE FOR GFR 0.93 MG/DL (0.70-1.30); GLOMERULAR FILTRATION RATE > 60.0 (>49); GLUCOSE, FASTING 109 MG/DL (80-110); MAGNESIUM LEVEL 2.1 MG/DL (1.8-2.4); POTASSIUM SERUM 4.1 MEQ/L (3.5-5.1); SODIUM LEVEL 139 MEQ/L (136-145); TOTAL PROTEIN 6.1 GM/DL (6.4-8.2)
[2017-03-02 06:15] LABS: BANDS 2 % (< 11)
[2017-03-02 06:16] LABS: ANISOCYTOSIS 1+; HYPOCHROMASIA 1+
[2017-03-02] MEDS: HumaLOG INSULIN (NovoLOG) PER UNIT SC SCH ×5 (07:58→23:53)
[2017-03-02] MEDS: PANTOPRAZOLE 40MG TAB (PROTONIX) PO SCH (07:59)
[2017-03-02] MEDS: MAGNESIUM OXIDE 400 MG TAB (MAG-OX) PO SCH ×2 (07:59→21:26)
[2017-03-02] MEDS: ASPIRIN 81 MG ENTERIC TAB PO SCH (07:59)
[2017-03-02] MEDS ORDERED: FUROSEMIDE 40 MG/4 ML VIAL (J1940) IV ONE ×2 (11:45→18:00)
--- NOTE | 2017-03-02 11:48 | IPNPDOC ---
Date Seen The patient was seen on 03/02/17. Progress Note SUBJECTIVE: Patient is a 61-year-old male with post-obstructive pneumonia secondary to right lung mass. Patient is evaluated at bedside this morning. He is status-post lung mass biopsy. Results are pending. Patient continues to report shortness of breath, but says it is no more laborious than it has been over the last month. He feels as if his breathing improves if he lays down. Admits to worsening shortness of breath with only several feet of ambulation. Continues to cough, but says he is not able to expectorate any sputum/mucous. Describes back pain with ambulation, but nothing at rest. Denies fever, night sweats, chills, chest pain. OBJECTIVE PHYSICAL EXAMINATION: VITAL SIGNS: Please see below. GENERAL: Obese male, somewhat grubby and raged appearing, appears older than stated age, wearing hospital gown, breathing appears to be laborious HEENT: Atraumatic, normocephalic, PERRL, EOMI, oral mucosa appears pink and moist, nasal septum with NC in place, nares are patent, full de CARDIOVASCULAR: Exceedingly difficult to appreciated over coarse and harsh lung sounds, telemetry reveals sinus rhythm RESPIRATORY: Coarse and harsh breath sounds throughout, more notably on the left , lung sounds on the right sound diminished yet clear, adequate inspiratory and expiratory airway excursion, no wheeze appreciated ABDOMINAL: Round, soft, non-tender, non-distended, no organomegaly, no rebound, no guarding, bowel sounds somewhat diminished EXTREMITIES: Dry skin appreciated, mild stasis dermatitis appreciated on lower extremities bilaterally, radial and posterior tibial pulses equal and symmetrical, +2, +2 pitting edema appreciated in right lower extremity NEUROLOGICAL: CN II-XII grossly intact PSYCHOLOGICAL: Alert and conversant LABORATORY DATA: Please see below. MICROBIOLOGY: Please see below. DVT prophylaxis ordered?: TEDs and sequentials, knee high compression, Lovenox 40mg SC daily ASSESSMENT AND PLAN: This is a 61-year-old male with post-obstructive pneumonia secondary to right lung mass. PROBLEMS: 1. Post-obstructive pneumonia: Leukocytosis is improving. Currently on Vancomycin and Zosyn. Blood cultures are negative. Remains on oxygen via NC with saturations > 90%. CRP is elevated, but trending downward. 2. Lung mass: CT-guided biopsy performed. Pending pathology results. 4. Hypotension: Resolved. IVF discontinued. Possibly some fluid overload due to wet-sounding lung examination. Giving Lasix 40mg IV once. Also obtaining right lower extremity ultrasound as lower extremity is somewhat more edematous than left. 5. New-onset atrial fibrillation: Nothing seen on telemetry this AM. Metoprolol with hold parameters. Lovenox for DVT prophylaxis. Likely secondary to post-obstructive pneumonia and lung mass. 6. Diabetes mellitus: Sliding scale insulin, fingersticks before meals and at bedtime, hypoglycemic protocol. 7. COPD: Continue with Atrovent. 8. Dyslipidemia: Continue with Simvastatin. 9. Vitamin D deficiency: Continue with supplementation. 10. Insomnia: Continue with Risperdal. DISPOSITION: Admitted to the PCU. Pending pathology results from CT-guided biopsy fo right lung mass. VS, I&O, 24H, Fishbone Vital Signs/I&O Vital Signs Date Time Temp Pulse Resp B/P (MAP) Pulse Ox O2 Delivery O2 Flow Rate FiO2 03/02/17 08:00 98.2 98 60 123/58 (79) 82 Nasal Cannula 3.0 I&O- Last 24 Hours up to 6 AM 03/03/17 06:00 Intake Total 240 ml Balance 240 ml Laboratory Data 24H LABS Laboratory Tests 2 03/01/17 12:51: Bedside Glucose (Misc Panel) 100 03/01/17 16:36: Bedside Glucose (Misc Panel) 141H 03/01/17 20:52: Bedside Glucose (Misc Panel) 129H 03/02/17 05:17: Immature Granulocyte % (Auto) , Nucleated Red Blood Cells % (auto) 0.4H, Neutrophils 65, Band Neutrophils 2, Lymphocytes (Manual) 22, Monocytes (Manual) 7, Metamyelocytes 1H, Myelocytes 3H, Platelet Estimate NORMAL, Hypochromasia 1+ , Anisocytosis 1+, Anion Gap 9, Glomerular Filtration Rate > 60.0, Blood Urea Nitrogen 11, Creatinine 0.93, Sodium Level 139, Potassium Level 4.1, Chloride Level 105, Carbon Dioxide Level 25, Calcium Level 8.9, Aspartate Amino Transf ( AST/SGOT) 66H, Alanine Aminotransferase (ALT/SGPT) 60, Alkaline Phosphatase 226H , Total Bilirubin 0.3, Total Protein 6.1L, Albumin 1.7L, Magnesium Level 2.1, C- Reactive Protein, Quantitative 7.93H, Albumin/Globulin Ratio 0.39L CBC/BMP Laboratory Tests 03/02/17 05:17 Red Blood Count 3.86 L, Mean Corpuscular Volume 90.9, Mean Corpuscular Hemoglobin 29.0, Mean Corpuscular Hemoglobin Concent 31.9 L, Red Cell Distribution Width 16.5 H, Calcium Level 8.9, Aspartate Amino Transf (AST/SGOT) 66 H, Alanine Aminotransferase (ALT/SGPT) 60, Alkaline Phosphatase 226 H, Total Bilirubin 0.3, Total Protein 6.1 L, Albumin 1.7 L Microbiology Microbiology 02/27/17 Blood Culture - Preliminary, Resulted No Growth after 48 hours. All Specime... 02/27/17 Blood Culture - Preliminary, Resulted No Growth after 48 hours. All Specime... 02/27/17 Influenza Virus Type A Antigen - Final, Complete 02/27/17 Influenza Virus Type B Antigen - Final, Complete 02/27/17 Urine Culture - Final, Complete PARISH MILLAN DO Mar 02, 2017 11:48
--- NOTE | 2017-03-02 13:34 | REP ---
Clinical: Right lower extremity pain and swelling . Technique: Ansari scale and color Doppler evaluation using linear high frequency transducer. Findings: Ultrasound examination of the right lower extremity deep venous structures from the common femoral vein to the popliteal vein demonstrates normal compressibility flow and wave patterns in response to respiration and augmentation. There is no evidence for deep venous thrombosis. Impression: No evidence for deep venous thrombosis. Signed by Sid Mckinnon MD 03/02/2017 01:26 P
[2017-03-02] MEDS: ENOXAPARIN 40 MG/0.4 ML SYRINGE (J1650) SC SCH (13:41)
[2017-03-02] MEDS ORDERED: IPRATROPIUM 0.5MG/ALBUTEROL 2.5MG INH SOL UD 3ML (DUONEB)(J7620) NEB PRN (17:30)
[2017-03-02 18:14] LABS: ABG BASE EXCESS 0.2 (-2.0-2.0); ABG HCO3 28.4 MEQ/L (22.0-26.0); ABG PARTIAL PRESSURE CO2 63.5 mmHg (35.0-45.0); ABG PARTIAL PRESSURE O2 60.2 mmHg (75.0-100.0); ABG STANDARD HCO3 24.5 MEQ/L (22.0-26.0); ABG TOTAL CO2 30.4 MEQ/L (23.0-31.0); ABG pH (ARTERIAL) 7.269 UNITS (7.350-7.450)
--- NOTE | 2017-03-02 18:20 | REP ---
Clinical: Shortness of breath. Lung mass. Comparison: 03/01/2017. Findings: Large right pleural effusion and right consolidation may be increased from prior examination. Trace left basilar atelectasis cannot be excluded. No pneumothorax. Right pleural catheter cannot be excluded. Cardiomegaly remains stable. Skeletal structures intact. Impression: Findings suggesting increased right pleural effusion and consolidation. Signed by Sid Mckinnon MD 03/02/2017 06:11 P
[2017-03-02] MEDS ORDERED: ALBUTEROL SULFATE 2.5 MG/0.5 ML INH NEB SOLN NEB PRN (19:15)
[2017-03-02] MEDS: IPRATROPIUM 0.5MG/ALBUTEROL 2.5MG INH SOL UD 3ML (DUONEB)(J7620) NEB SCH (20:55)
[2017-03-02] MEDS: SIMVASTATIN 20 MG TAB PO SCH (21:23)
[2017-03-02] MEDS: VITAMIN D 1,000 INTERNATIONAL UNITS TABLET PO SCH (21:25)
[2017-03-02] MEDS: risperiDONE 3 MG TAB PO SCH (21:26)
[2017-03-02 23:47] LABS: ABG BASE EXCESS 1.9 (-2.0-2.0); ABG HCO3 28.4 MEQ/L (22.0-26.0); ABG PARTIAL PRESSURE CO2 53.3 mmHg (35.0-45.0); ABG PARTIAL PRESSURE O2 94.3 mmHg (75.0-100.0); ABG STANDARD HCO3 26.1 MEQ/L (22.0-26.0); ABG TOTAL CO2 30.1 MEQ/L (23.0-31.0); ABG pH (ARTERIAL) 7.345 UNITS (7.350-7.450)
[2017-03-03] VITALS (9 sets, daily range): BP systolic 99–120; BP diastolic 63–73
[2017-03-03] MEDS: PIPERACILLIN/TAZOBACTAM SOD 3.375 GM in APPROPRIATE DILUENT 1 EA IV SCH ×4 (00:33→18:30)
[2017-03-03] MEDS: IPRATROPIUM 0.5MG/ALBUTEROL 2.5MG INH SOL UD 3ML (DUONEB)(J7620) NEB SCH ×4 (01:15→20:45)
[2017-03-03 04:41] LABS: MEAN CORPUSCULAR HEMOGLOBIN 29.6 pg (27.0-33.0); MEAN CORPUSCULAR HGB CONC 32.1 g/dl (32.0-36.5); MEAN CORPUSCULAR VOLUME 92.5 fl (80.0-96.0); PLATELET COUNT, AUTOMATED 171 10^3/uL (150-450); RED CELL DISTRIBUTION WIDTH 16.4 % (11.5-14.5); WHITE BLOOD COUNT 12.5 10^3/uL (4.0-10.0)
[2017-03-03 04:46] LABS: ADD MANUAL DIFFER YES; DIFF SLIDE NUMBER 24; POS COUNT POS FLAG; POSITIVE MORPH POS FLAG
[2017-03-03 04:51] LABS: ALBUMIN 1.8 GM/DL (3.2-5.2); ALBUMIN/GLOBULIN RATIO 0.41 (1.00-1.93); ALKALINE PHOSPHATASE 223 U/L (45-117); ALT/SGPT 67 U/L (12-78); ANION GAP 6 MEQ/L (8-16); AST/SGOT 68 U/L (7-37); BILIRUBIN,TOTAL 0.4 MG/DL (0.2-1.0); BLOOD UREA NITROGEN 12 MG/DL (7-18); CARBON DIOXIDE LEVEL 31 MEQ/L (21-32); CHLORIDE LEVEL 102 MEQ/L (98-107); GLOMERULAR FILTRATION RATE > 60.0 (>49); GLUCOSE, FASTING 122 MG/DL (80-110); SODIUM LEVEL 139 MEQ/L (136-145); TOTAL PROTEIN 6.2 GM/DL (6.4-8.2)
[2017-03-03] MEDS: VANCOMYCIN HCL 1,000 MG, VIAL MATE ADAPTER 1 EACH in D5W 250 ML IV SCH ×2 (04:55→17:06)
[2017-03-03 05:24] LABS: ANISOCYTOSIS 1+
[2017-03-03] MEDS: HumaLOG INSULIN (NovoLOG) PER UNIT SC SCH ×4 (05:43→21:00)
[2017-03-03] MEDS: METOPROLOL TART 12.5 MG PER 1/2 TAB PO SCH ×3 (05:43→17:30)
[2017-03-03] MEDS: SLF 3 ML SYR IV SCH ×3 (05:44→21:42)
--- NOTE | 2017-03-03 09:05 | IPNPDOC ---
Date Seen The patient was seen on 03/03/17. Progress Note SUBJECTIVE: Patient is a 61-year-old male with post-obstructive pneumonia secondary to right lung mass. Patient is evaluated at bedside this morning. He was transferred to the ICU yesterday as he was having increased work of breathing with a worsening ABG (pH 7.2, pCO2 63). Pulmonary/critical care was consulted and patient was started on BiPAP. This morning patient states that he feels his breathing is no different from yesterday. He denies chest pain, fever, night sweats, chills, headache. OBJECTIVE PHYSICAL EXAMINATION: VITAL SIGNS: Please see below. GENERAL: Obese male, somewhat grubby and raged appearing, appears older than stated age, wearing hospital gown, has BiPAP in place HEENT: Atraumatic, normocephalic, PERRL, EOMI, oral mucosa appears pink and moist, nasal septum with NC in place, nares are patent, full de CARDIOVASCULAR: Regular rate and rhythm, normal S1 and S2, no murmur, rub, click RESPIRATORY: Improved breath sounds; however, still coarse breath sounds appreciated left > right; improved breath sounds appreciated over the right lung lobes, adequate inspiratory and expiratory airway excursion, no wheeze appreciated ABDOMINAL: Round, soft, non-tender, non-distended, no organomegaly, no rebound, no guarding, bowel sounds appreciated EXTREMITIES: Dry skin appreciated, mild stasis dermatitis appreciated on lower extremities bilaterally, radial and posterior tibial pulses equal and symmetrical, +2, +2 pitting edema appreciated in right lower extremity,dry skin appreciated on the upper extremities bilaterally NEUROLOGICAL: CN II-XII grossly intact PSYCHOLOGICAL: Alert and conversant LABORATORY DATA: Please see below. MICROBIOLOGY: Please see below. DVT prophylaxis ordered?: TEDs and sequentials, knee high compression, Lovenox 40mg SC daily ASSESSMENT AND PLAN: This is a 61-year-old male with post-obstructive pneumonia secondary to right lung mass. PROBLEMS: 1. Post-obstructive pneumonia: Leukocytosis is improving. Currently on Vancomycin and Zosyn. Blood cultures are negative. Worsening ABG yesterday ( pH 7.2, pCO2 63). Transferred to the ICU. Pulmonary/critical care consulted. Appreciate their assistance. On BiPAP. Slight worsening of CRP and WBC. Remains on Duonebs and Albuterol. Received 2x doses of Lasix. Repeat ABG after initiation was BiPAP has improved to pH 7.3, pCO2 53. 2. Lung mass: CT-guided biopsy performed. Pending pathology results. 4. Hypotension: Resolved. IVF discontinued. Giving Lasix 40mg IV x2. Right lower extremity ultrasound negative. 5. New-onset atrial fibrillation: Nothing seen on telemetry this AM. Metoprolol with hold parameters. Lovenox for DVT prophylaxis. Likely secondary to post-obstructive pneumonia and lung mass. 6. Diabetes mellitus: Sliding scale insulin, fingersticks before meals and at bedtime, hypoglycemic protocol. 7. COPD: Continue with Atrovent. 8. Dyslipidemia: Continue with Simvastatin. 9. Vitamin D deficiency: Continue with supplementation. 10. Schizophrenia, paranoid type: As documented by psychiatry note in 2002. Continue with Risperdal. DISPOSITION: Transferred to ICU. Continue to appreciate the valued assistance of pulmonary/critical care. Pending pathology results from CT-guided biopsy fo right lung mass. VS, I&O, 24H, Fishbone Vital Signs/I&O Vital Signs Date Time Temp Pulse Resp B/P (MAP) Pulse Ox O2 Delivery O2 Flow Rate FiO2 03/03/17 05:43 92 99/63 03/03/17 04:00 BIPAP/CPAP 40 03/03/17 04:00 96.7 23 96 03/02/17 16:00 5.0 Laboratory Data 24H LABS Laboratory Tests 2 03/02/17 12:57: Bedside Glucose (Misc Panel) 151H 03/02/17 16:46: Bedside Glucose (Misc Panel) 143H 03/02/17 18:02: Blood Gas Bicarbonate Standard 24.5, Arterial Blood pH 7.269L, Arterial Blood Partial Pressure CO2 63.5*H, Arterial Blood Partial Pressure O2 60.2L, Arterial Blood Total CO2 30.4, Arterial Blood HCO3 28.4H, Arterial Blood Base Excess 0.2 , Arterial Blood Oxygen Saturation 88.9L 03/02/17 21:14: Bedside Glucose (Misc Panel) 148H 03/02/17 23:35: Blood Gas Bicarbonate Standard 26.1H, Arterial Blood pH 7.345L, Arterial Blood Partial Pressure CO2 53.3H, Arterial Blood Partial Pressure O2 94.3, Arterial Blood Total CO2 30.1, Arterial Blood HCO3 28.4H, Arterial Blood Base Excess 1.9 , Arterial Blood Oxygen Saturation 96.9 03/02/17 23:44: Bedside Glucose (Misc Panel) 131H 03/03/17 04:04: Immature Granulocyte % (Auto) , Nucleated Red Blood Cells % (auto) 0.8H, Neutrophils 74, Lymphocytes (Manual) 15L, Monocytes (Manual) 9H, Metamyelocytes 1H, Myelocytes 1H, Platelet Estimate NORMAL, Basophilic Stippling 1+, Anisocytosis 1+, Anion Gap 6L, Glomerular Filtration Rate > 60.0, Blood Urea Nitrogen 12, Creatinine 0.80, Sodium Level 139, Potassium Level 4.0, Chloride Level 102, Carbon Dioxide Level 31, Calcium Level 9.0, Aspartate Amino Transf ( AST/SGOT) 68H, Alanine Aminotransferase (ALT/SGPT) 67, Alkaline Phosphatase 223H , Total Bilirubin 0.4, Total Protein 6.2L, Albumin 1.8L, Magnesium Level 2.0, C- Reactive Protein, Quantitative 10.20H, Albumin/Globulin Ratio 0.41L 03/03/17 05:36: Bedside Glucose (Misc Panel) 121H CBC/BMP Laboratory Tests 03/03/17 04:04 Red Blood Count 3.71 L, Mean Corpuscular Volume 92.5, Mean Corpuscular Hemoglobin 29.6, Mean Corpuscular Hemoglobin Concent 32.1, Red Cell Distribution Width 16.4 H, Calcium Level 9.0, Aspartate Amino Transf (AST/SGOT) 68 H, Alanine Aminotransferase (ALT/SGPT) 67, Alkaline Phosphatase 223 H, Total Bilirubin 0.4, Total Protein 6.2 L, Albumin 1.8 L Microbiology Microbiology 02/27/17 Blood Culture - Preliminary, Resulted No Growth after 72 hours. All specime... 02/27/17 Blood Culture - Preliminary, Resulted No Growth after 72 hours. All specime... 02/27/17 Influenza Virus Type A Antigen - Final, Complete 02/27/17 Influenza Virus Type B Antigen - Final, Complete 02/27/17 Urine Culture - Final, Complete PARISH MILLAN DO Mar 03, 2017 09:05
[2017-03-03] MEDS: ENOXAPARIN 40 MG/0.4 ML SYRINGE (J1650) SC SCH (09:20)
[2017-03-03] MEDS: MAGNESIUM OXIDE 400 MG TAB (MAG-OX) PO SCH ×2 (09:20→21:41)
[2017-03-03] MEDS: PANTOPRAZOLE 40MG TAB (PROTONIX) PO SCH (09:20)
[2017-03-03] MEDS: ASPIRIN 81 MG ENTERIC TAB PO SCH (09:20)
--- NOTE | 2017-03-03 13:03 | CCN ---
DATE: 03/02/2017 NOTE: I was asked to emergently evaluate Mr. Sanders for respiratory distress. Mr. Sanders is a 61-year-old white male who was admitted on 02/27/2017 after presenting to the emergency department with increased shortness of breath. At that time he was found to have atrial fibrillation with rapid ventricular response with a heart rate in the 140s and he was hypotensive. After receiving IV fluid and Digoxin, his blood pressure normalized, his heart rate was down to the 100s. As part of his evaluation, he was found to have a new right sided lung mass and was admitted. Per their notes, he had a cough productive of white sputum without any hemoptysis but had no other real complaints except for difficulty with shortness of breath that he presented with. In his review of systems, he had been noted that he had lost 43 pounds over the last 2 months despite a normal appetite, and then he has a significant smoking history and was either a smoker or just quit smoker on presentation. Aside from being found to have atrial fibrillation and the lung mass, in the emergency department it was felt that he also had a postobstructive pneumonic process because of leukocytosis and he was started on antibiotics. Additional pertinent past medical history includes diabetes mellitus, chronic back pain, and some type of psychiatric diagnosis, for which he is living with [facility] ([facility]) (question schizophrenia). Apparently he had been doing reasonable well since admission, although was having intermittent atrial fibrillation and was found to have heart rate increased to the 180s with activity. He also would appear very shortness of breath with activity. 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 Additional studies done included a chest x-ray that was not significantly changed, as well as lower extremity Doppler that did not show any evidence of deep vein thrombosis (DVT). Currently, Mr. Sanders is lying in bed using abdominal musculature on exhalation, but not appearing particularly uncomfortable. He has "gurgling sounds." He does not appear to have a strong cough. He speaks in short word sentences, but tells me that he feels less short of breath now than when he presented to the hospital a few days ago. He denies any chest pain or abdominal pain. He feels his back pain is better than it has been in the past. In reviewing his medication list, I do not see any pain medication or sleeping medication that has been given today. ALLERGIES: No known drug allergies. MEDICATIONS ON TRANSFER: - acetaminophen 650 mg by mouth every 4 hours as needed - DuoNeb every 2 hours as needed - DuoNeb every 6 hours scheduled - aspirin 81 mg by mouth daily - enoxaparin 40 mg subcutaneous daily - insulin sliding scale protocol - ipratropium inhaler two puffs scheduled every 6 hours - magnesium oxide 400 mg by mouth twice a day - Lopressor 12.5 mg by mouth every 6 hours - Protonix 40 mg by mouth daily - Zosyn 3.375 grams IV every 6 hours - Risperdal 3 mg by mouth at night - Zocor 20 mg by mouth at night - vancomycin 1 gram IV every 12 hours - vitamin D 2000 units by mouth at night PHYSICAL EXAMINATION: GENERAL: Mr. Sanders is lying in bed in mild respiratory distress, although he does not appear frankly that uncomfortable. He is using abdominal musculature on exhalation. He can speak in short sentences. VITAL SIGNS: Temperature 97.5, pulse 108, blood pressure 107/68 with a MAP of 81, SpO2 of 92% on 5 liters via nasal cannula. HEENT: Anicteric. Pupils equal, round, and reactive to light and accommodation. Nares: Patent bilaterally. Oropharynx clear. No lesions. Neck supple without apparent jugular venous distention (JVD), though difficult to examine. Without thyromegaly or masses. Trachea is midline. LYMPHATICS: Without cervical or supraclavicular lymphadenopathy. CHEST: Normal shape. LUNGS: Symmetric excursion. On the right side there are rhonchi over the top third and absent breath sounds in the base. On the left side, there are rhonchi throughout the entire field. No crackles or wheezes. Normal I:E. He is using abdominal accessory muscles. No retractions. CARDIOVASCULAR: Irregularly irregular. Tachycardic. Normal S1, S2. No murmur, rub or gallop appreciated. ABDOMEN: Normoactive bowel sounds. Soft, nondistended, nontender. No hepatosplenomegaly or masses appreciated. EXTREMITIES: 1+ edema to the knees bilaterally. Without clubbing or cyanosis. Palpable pedal pulses bilaterally. LABORATORY DATA: CBC from this morning showed a hemoglobin of 11.2, hematocrit 35.1, platelet count 181,000. White blood cell count 10,900 with a differential of 65% neutrophils, 2% bands, 22% lymphocytes. His admitting WBC on 02/27/2017 was 15.1. Input and output: Thus far since admission he is positive 9737 mL. Chemistry showed a sodium of 139, potassium 4.1, chloride 105, bicarbonate 25, anion gap 9, BUN 11, creatinine 0.9, glucose 109, calcium 8.9, magnesium 2.1, total bilirubin 0.3, AST 66, ALT 60, alkaline phosphatase 226, C-reactive protein 7.9 (down from 14.2 on 02/28), total protein 6.1, and albumin 1.7. Blood gas was 7.27/64/60 with a measured saturation of 89% and a base excess of 0.2. I believe this was drawn on 5 liters. His admission arterial blood gas on 02/27/2017 was 7.50/28/74 with a measured saturation of 94% and a base excess of minus 0.9. I do not know how much this was drawn on. I reviewed his chest x-ray, as well as the report from earlier this evening. That showed a large right sided mass with increased markings above that in the right upper lobe region. Left lung was clear. No pneumothorax. In my view, no significant change compared to his post biopsy chest x-ray from 03/01/2017 and not significantly different from his admission chest x-ray on 02/27/2017, though that was lordotic. EKG pending. IMPRESSION: 1. Acute hypercapnic respiratory failure. 2. Atrial fibrillation. 3. Large right sided lung mass, biopsy pending. Unfortunately most likely diagnosis is lung cancer. 4. Probable postobstructive pneumonia, which appears to be responding to antibiotics. 5. Significant tobacco history. 6. Mental illness of some type for which he is on Risperdal. 7. Diabetes mellitus type 2. 8. Deep vein thrombosis (DVT) and stress ulcer prophylaxis in place. RECOMMENDATIONS: 1. We will start noninvasive mechanical ventilation. 2. Recommend increasing the medications to control his atrial fibrillation, though I suspect that will be difficult. 3. We will discuss with respiratory therapy recommendations regarding trying to improve his cough and expectoration. 4. We will decrease the amount of anticholinergic that he is receiving, as this will only thicken his secretions. 5. Based on his examination, it is not known whether or not he has chronic obstructive pulmonary disease (COPD), though if he does this is not consistent with an exacerbation and so I would not recommend corticosteroids. I feel continued use of bronchodilators is acceptable. 6. Agree with judicious diuresis. Critical care time 50 minutes, not including procedure time.
[2017-03-03] MEDS: risperiDONE 3 MG TAB PO SCH (21:41)
[2017-03-03] MEDS: VITAMIN D 1,000 INTERNATIONAL UNITS TABLET PO SCH (21:41)
[2017-03-03] MEDS: SIMVASTATIN 20 MG TAB PO SCH (21:41)
[2017-03-04] VITALS (7 sets, daily range): BP systolic 101–132; BP diastolic 59–81; O2SAT 94
[2017-03-04] MEDS: PIPERACILLIN/TAZOBACTAM SOD 3.375 GM in APPROPRIATE DILUENT 1 EA IV SCH ×4 (00:43→18:40)
[2017-03-04] MEDS: IPRATROPIUM 0.5MG/ALBUTEROL 2.5MG INH SOL UD 3ML (DUONEB)(J7620) NEB SCH ×4 (01:48→19:28)
[2017-03-04 04:30] LABS: MEAN CORPUSCULAR HEMOGLOBIN 29.5 pg (27.0-33.0); MEAN CORPUSCULAR HGB CONC 32.3 g/dl (32.0-36.5); MEAN CORPUSCULAR VOLUME 91.4 fl (80.0-96.0); PLATELET COUNT, AUTOMATED 175 10^3/uL (150-450); RED CELL DISTRIBUTION WIDTH 16.1 % (11.5-14.5); WHITE BLOOD COUNT 12.9 10^3/uL (4.0-10.0)
[2017-03-04] MEDS ORDERED: METOPROLOL TART 12.5 MG PER 1/2 TAB PO ONE (04:30)
[2017-03-04 04:31] LABS: ADD MANUAL DIFFER YES; DIFF SLIDE NUMBER 19; POS COUNT POS FLAG; POSITIVE MORPH POS FLAG
[2017-03-04] MEDS: VANCOMYCIN HCL 1,000 MG, VIAL MATE ADAPTER 1 EACH in D5W 250 ML IV SCH ×2 (04:58→17:10)
[2017-03-04] MEDS: SLF 3 ML SYR IV SCH ×3 (04:59→21:12)
[2017-03-04 05:03] LABS: ALBUMIN 1.8 GM/DL (3.2-5.2); ALBUMIN/GLOBULIN RATIO 0.53 (1.00-1.93); ALKALINE PHOSPHATASE 240 U/L (45-117); ALT/SGPT 81 U/L (12-78); ANION GAP 6 MEQ/L (8-16); AST/SGOT 91 U/L (7-37); BILIRUBIN,TOTAL 0.3 MG/DL (0.2-1.0); BLOOD UREA NITROGEN 12 MG/DL (7-18); CALCIUM LEVEL 8.8 MG/DL (8.8-10.2); CARBON DIOXIDE LEVEL 32 MEQ/L (21-32); CHLORIDE LEVEL 100 MEQ/L (98-107); CREATININE FOR GFR 0.71 MG/DL (0.70-1.30); GLOMERULAR FILTRATION RATE > 60.0 (>49); GLUCOSE, FASTING 136 MG/DL (80-110); POTASSIUM SERUM 4.1 MEQ/L (3.5-5.1); SODIUM LEVEL 138 MEQ/L (136-145); TOTAL PROTEIN 5.2 GM/DL (6.4-8.2)
[2017-03-04 05:06] LABS: ANISOCYTOSIS 1+
--- NOTE | 2017-03-04 05:07 | PHACANCOPD ---
PHARMACY VANCOMYCIN DOSING Pt Demographics Demographics Patient Age:61 , Weight:115.600 , Gender: male Adjusted Body Weight Date: 02/27/17, Adjusted Body Weight: [89.104] Kg Vancomycin Vancomycin indication: MRSA coverage Vancomycin Target Ranges: 15-20 mcg/ml Vancomycin Load Y/N: Yes Load Dose Date Time Vancomycin Load Dose: 2g Date: 02/27/17 Time: 1700 Vancomycin Dose Date: 03/04/17. Current Vancomycin Dose: [1g IV Q12H] Intermittent Dosing?: No Labs Labs Item Value Date Time White Blood Count 12.9 10^3/uL H 03/04/17 0404 Creatinine 0.71 MG/DL 03/04/17 0404 Blood Urea Nitrogen 12 MG/DL 03/04/17 0404 Vancomycin Level Trough 16.6 UG/ML 03/04/17 040 Vital Signs Label Value Date Time Patient Temperature 97.6 degrees F 03/04/17 0000 Temperature Source Temporal 03/04/17 0000 Micro Microbiology 02/27/17 Blood Culture - Preliminary, Resulted No Growth after 72 hours. All specime... 02/27/17 Blood Culture - Preliminary, Resulted No Growth after 72 hours. All specime... 02/27/17 Influenza Virus Type A Antigen - Final, Complete 02/27/17 Influenza Virus Type B Antigen - Final, Complete 02/27/17 Urine Culture - Final, Complete Creatinine Clearance Date:02/27/17. Estimated Creatinine Clearance: [~59.5ml/min]. Assessment and Plan Maintaining Current Dose?: Yes Reason for dose change: No Dose Change Pharmacist Note Pharmacist Note Date: 03/04/17. Pharmacist note: trough of 16.6 is within target range. Will continue current dosing. Will continue to monitor and make adjustments as needed. [facility] Mar 04, 2017 05:07
[2017-03-04] MEDS: HumaLOG INSULIN (NovoLOG) PER UNIT SC SCH ×4 (07:13→21:00)
[2017-03-04] MEDS ORDERED: DIGOXIN INJ 0.5 MG/2 ML AMP (J1160) IV ONE (08:30)
[2017-03-04] MEDS: ASPIRIN 81 MG ENTERIC TAB PO SCH (08:57)
[2017-03-04] MEDS: PANTOPRAZOLE 40MG TAB (PROTONIX) PO SCH (08:58)
[2017-03-04] MEDS: APIXABAN 5 MG TAB (ELIQUIS) PO SCH ×2 (08:58→21:08)
[2017-03-04] MEDS: MAGNESIUM OXIDE 400 MG TAB (MAG-OX) PO SCH ×2 (08:58→21:08)
--- NOTE | 2017-03-04 10:31 | IPNPDOC ---
Date Seen The patient was seen on 03/04/17. Progress Note SUBJECTIVE: Patient is a 61-year-old male with post-obstructive pneumonia secondary to right lung mass. Patient is evaluated at bedside this morning. He is on nasal cannula. He feels as if his breathing has improved. He denies chest pain, worsening shortness of breath, fever, night sweats, chills. Admits to some pain in his upper right abdominal quadrant with palpation. Heart rate does increase significantly with any type of exertion, although patient has no complaints during these episodes of tachycardia. OBJECTIVE PHYSICAL EXAMINATION: VITAL SIGNS: Please see below. GENERAL: Obese male, somewhat raged appearing, appears older than stated age, wearing hospital gown, nasal cannula in place HEENT: Atraumatic, normocephalic, PERRL, EOMI, oral mucosa appears pink and moist, nasal septum with nasal cannula in place, nares are patent, full de CARDIOVASCULAR: Cardiac sounds are clearly appreciated, irregularly irregular heart rate and rhythm, no appreciable murmur, rub, click RESPIRATORY: Significantly improved breath sounds, adequate inspiratory and expiratory airway excursion, lung sounds appreciated bilaterally, no wheeze, rhonchi, crackles ABDOMINAL: Round, soft, tender in the right upper quadrant with palpation, non- distended, no organomegaly, no rebound, no guarding, bowel sounds appreciated EXTREMITIES: Dry skin appreciated, mild stasis dermatitis appreciated on lower extremities bilaterally, radial and posterior tibial pulses equal and symmetrical, +2, +2 pitting edema appreciated in bilateral lower extremities, dry skin appreciated on the upper extremities bilaterally NEUROLOGICAL: CN II-XII grossly intact PSYCHOLOGICAL: Alert and conversant LABORATORY DATA: Please see below. MICROBIOLOGY: Please see below. DVT prophylaxis ordered?: TEDs and sequentials, knee high compression, Lovenox 40mg SC daily ASSESSMENT AND PLAN: This is a 61-year-old male with post-obstructive pneumonia secondary to right lung mass. PROBLEMS: 1. Paroxysmal atrial fibrillation: Initiated Eliquis 5mg twice a day. Received a one-time dose of Digoxin. Heart rate becomes tachycardic with any amount of exertion. Receiving Metoprolol IV 12.5mg Q6H with hold parameters. 2. Post-obstructive pneumonia: Continue to appreciate the assistance of pulmonary/critical care. Leukocytosis has remained around 12. Remains on IV Vancomycin and Zosyn. Renal function appropriate. Blood cultures are negative. Obtaining repeat ABG. Patient on nasal cannula. Continue with Duonebs and Albuterol. Lasix as needed as long as blood pressure can sustain diuresis. 3. Lung mass: CT-guided biopsy performed. Pending pathology results. 4. Hypotension: Blood pressure is soft. 6. Diabetes mellitus: Sliding scale insulin, fingersticks before meals and at bedtime, hypoglycemic protocol. 7. COPD: Continue with Atrovent. 8. Dyslipidemia: Continue with Simvastatin. 9. Vitamin D deficiency: Continue with supplementation. 10. Schizophrenia, paranoid type: As documented by psychiatry note in 2002. Continue with Risperdal. DISPOSITION: Admitted to the ICU. Continue to appreciate the assistance of pulmonary/critical care. Monitor heart rate. Adjust medications as needed. Pending pathology results from CT-guided biopsy fo right lung mass. VS, I&O, 24H, Fishbone Vital Signs/I&O Vital Signs Date Time Temp Pulse Resp B/P (MAP) Pulse Ox O2 Delivery O2 Flow Rate FiO2 03/04/17 08:57 139 03/04/17 08:00 98.4 22 107/75 (86) 96 Nasal Cannula 2.0 03/03/17 13:16 35 I&O- Last 24 Hours up to 6 AM 03/05/17 06:00 Intake Total 570 ml Output Total 200 ml Balance 370 ml Laboratory Data 24H LABS Laboratory Tests 2 03/03/17 12:18: Bedside Glucose (Misc Panel) 111 03/03/17 17:23: Bedside Glucose (Misc Panel) 141H 03/03/17 20:59: Bedside Glucose (Misc Panel) 195H 03/04/17 04:04: Immature Granulocyte % (Auto) , Nucleated Red Blood Cells % (auto) 1.2H, Neutrophils 77H, Lymphocytes (Manual) 16, Monocytes (Manual) 4, Metamyelocytes 1H, Myelocytes 2H, Platelet Estimate NORMAL, Anisocytosis 1+, Anion Gap 6L, Glomerular Filtration Rate > 60.0, Blood Urea Nitrogen 12, Creatinine 0.71, Sodium Level 138, Potassium Level 4.1, Chloride Level 100, Carbon Dioxide Level 32, Calcium Level 8.8, Aspartate Amino Transf (AST/SGOT) 91H, Alanine Aminotransferase (ALT/SGPT) 81H, Alkaline Phosphatase 240H, Total Bilirubin 0.3 , Total Protein 5.2L, Albumin 1.8L, Magnesium Level 2.0, C-Reactive Protein, Quantitative 7.26H, Albumin/Globulin Ratio 0.53L, Vancomycin Level Trough 16.6 CBC/BMP Laboratory Tests 03/04/17 04:04 Red Blood Count 3.59 L, Mean Corpuscular Volume 91.4, Mean Corpuscular Hemoglobin 29.5, Mean Corpuscular Hemoglobin Concent 32.3, Red Cell Distribution Width 16.1 H, Calcium Level 8.8, Aspartate Amino Transf (AST/SGOT) 91 H, Alanine Aminotransferase (ALT/SGPT) 81 H, Alkaline Phosphatase 240 H, Total Bilirubin 0.3, Total Protein 5.2 L, Albumin 1.8 L Microbiology Microbiology 02/27/17 Blood Culture - Preliminary, Resulted No Growth after 72 hours. All specime... 02/27/17 Blood Culture - Preliminary, Resulted No Growth after 72 hours. All specime... 02/27/17 Influenza Virus Type A Antigen - Final, Complete 02/27/17 Influenza Virus Type B Antigen - Final, Complete 02/27/17 Urine Culture - Final, Complete PARISH MILLAN DO Mar 04, 2017 10:31
[2017-03-04 10:41] LABS: ABG BASE EXCESS 5.7 (-2.0-2.0); ABG HCO3 30.4 MEQ/L (22.0-26.0); ABG PARTIAL PRESSURE CO2 44.6 mmHg (35.0-45.0); ABG PARTIAL PRESSURE O2 61.9 mmHg (75.0-100.0); ABG STANDARD HCO3 29.5 MEQ/L (22.0-26.0); ABG TOTAL CO2 31.7 MEQ/L (23.0-31.0); ABG pH (ARTERIAL) 7.451 UNITS (7.350-7.450)
[2017-03-04] MEDS: METOPROLOL TART 12.5 MG PER 1/2 TAB PO SCH ×3 (11:51→17:12)
--- NOTE | 2017-03-04 18:07 | ECGEPIP ---
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
[2017-03-04] MEDS: risperiDONE 3 MG TAB PO SCH (21:08)
[2017-03-04] MEDS: SIMVASTATIN 20 MG TAB PO SCH (21:08)
[2017-03-04] MEDS: VITAMIN D 1,000 INTERNATIONAL UNITS TABLET PO SCH (21:08)
[2017-03-05] VITALS: BP 120/72
[2017-03-05] MEDS: PIPERACILLIN/TAZOBACTAM SOD 3.375 GM in APPROPRIATE DILUENT 1 EA IV SCH ×4 (00:12→19:00)
[2017-03-05] MEDS: METOPROLOL TART 12.5 MG PER 1/2 TAB PO SCH ×2 (00:12→06:08)
[2017-03-05] MEDS: IPRATROPIUM 0.5MG/ALBUTEROL 2.5MG INH SOL UD 3ML (DUONEB)(J7620) NEB SCH ×4 (01:10→20:04)
[2017-03-05 04:00] VITALS: BP 137/79
[2017-03-05 04:37] LABS: MEAN CORPUSCULAR HEMOGLOBIN 29.8 pg (27.0-33.0); MEAN CORPUSCULAR HGB CONC 32.4 g/dl (32.0-36.5); PLATELET COUNT, AUTOMATED 180 10^3/uL (150-450); RED CELL DISTRIBUTION WIDTH 16.5 % (11.5-14.5); WHITE BLOOD COUNT 15.6 10^3/uL (4.0-10.0)
[2017-03-05 04:39] LABS: ADD MANUAL DIFFER YES; DIFF SLIDE NUMBER 10; POS COUNT POS FLAG; POSITIVE MORPH POS FLAG
[2017-03-05] MEDS: VANCOMYCIN HCL 1,000 MG, VIAL MATE ADAPTER 1 EACH in D5W 250 ML IV SCH ×2 (04:44→17:16)
[2017-03-05 04:59] LABS: ALBUMIN 1.8 GM/DL (3.2-5.2); ALBUMIN/GLOBULIN RATIO 0.44 (1.00-1.93); ALKALINE PHOSPHATASE 266 U/L (45-117); ALT/SGPT 122 U/L (12-78); ANION GAP 7 MEQ/L (8-16); AST/SGOT 124 U/L (7-37); BILIRUBIN,TOTAL 0.3 MG/DL (0.2-1.0); BLOOD UREA NITROGEN 13 MG/DL (7-18); CALCIUM LEVEL 9.3 MG/DL (8.8-10.2); CARBON DIOXIDE LEVEL 32 MEQ/L (21-32); CHLORIDE LEVEL 100 MEQ/L (98-107); CREATININE FOR GFR 0.79 MG/DL (0.70-1.30); GLOMERULAR FILTRATION RATE > 60.0 (>49); GLUCOSE, FASTING 126 MG/DL (80-110); MAGNESIUM LEVEL 2.2 MG/DL (1.8-2.4); POTASSIUM SERUM 4.2 MEQ/L (3.5-5.1); SODIUM LEVEL 139 MEQ/L (136-145); TOTAL PROTEIN 5.9 GM/DL (6.4-8.2)
[2017-03-05 05:19] LABS: BANDS 2 % (< 11)
[2017-03-05 05:20] LABS: ANISOCYTOSIS 1+
[2017-03-05] MEDS: SLF 3 ML SYR IV SCH ×3 (06:00→22:00)
[2017-03-05] MEDS: HumaLOG INSULIN (NovoLOG) PER UNIT SC SCH ×4 (07:34→20:12)
[2017-03-05 08:00] VITALS: BP 123/73
[2017-03-05 08:01] LABS: DIGOXIN LEVEL 0.7 NG/ML (0.5-2.0)
[2017-03-05] MEDS: ASPIRIN 81 MG ENTERIC TAB PO SCH (09:13)
[2017-03-05] MEDS: DIGOXIN 0.125 MG TAB PO SCH (09:13)
[2017-03-05] MEDS: PANTOPRAZOLE 40MG TAB (PROTONIX) PO SCH (09:13)
[2017-03-05] MEDS: MAGNESIUM OXIDE 400 MG TAB (MAG-OX) PO SCH ×2 (09:14→20:11)
[2017-03-05] MEDS: METOPROLOL TART 25 MG TABLET PO SCH ×2 (09:14→20:11)
[2017-03-05] MEDS: APIXABAN 5 MG TAB (ELIQUIS) PO SCH ×2 (09:14→20:12)
[2017-03-05] MEDS ORDERED: FUROSEMIDE 40 MG/4 ML VIAL (J1940) IV ONE (09:30)
[2017-03-05 12:00] VITALS: BP 143/83
--- NOTE | 2017-03-05 12:30 | IPNPDOC ---
Text Note Date of Service The patient was seen on 03/05/17. NOTE SUBJECTIVE: Patient is a 61-year-old male with post-obstructive pneumonia secondary to right lung mass. Patient is evaluated at bedside this morning. He is on nasal cannula. He feels as if his breathing has improved. He denies chest pain, worsening shortness of breath, fever, night sweats, chills. Admits to some pain in his upper right abdominal quadrant with deep palpation. Has not needed any BIPAP support for the past 24 hours. Unsure how much he comprehends the gravity of his disease situation at this point due to his psychiatric history. He tells me he would like to go to [facility] when he is discharged from the hospital. Pateint has now converted to sinus rhythm OBJECTIVE PHYSICAL EXAMINATION: VITAL SIGNS: Please see below. GENERAL: Obese male, somewhat raged appearing, appears older than stated age, wearing hospital gown, nasal cannula in place HEENT: Atraumatic, normocephalic, PERRL, EOMI, oral mucosa appears pink and moist, nasal septum with nasal cannula in place, nares are patent, full de CARDIOVASCULAR: Cardiac sounds are clearly appreciated, regular heart rate and rhythm, no appreciable murmur, rub, click RESPIRATORY: Significantly improved breath sounds, adequate inspiratory and expiratory airway excursion, lung sounds appreciated bilaterally, no wheeze, rhonchi, crackles ABDOMINAL: Round, soft, tender in the right upper quadrant with palpation, non- distended, no organomegaly, no rebound, no guarding, bowel sounds appreciated EXTREMITIES: Dry skin appreciated, mild stasis dermatitis appreciated on lower extremities bilaterally, radial and posterior tibial pulses equal and symmetrical, +2, +2 pitting edema appreciated in bilateral lower extremities, dry skin appreciated on the upper extremities bilaterally NEUROLOGICAL: CN II-XII grossly intact PSYCHOLOGICAL: Alert and conversant LABORATORY DATA: Please see below. MICROBIOLOGY: Please see below. DVT prophylaxis ordered?: TEDs and sequentials, knee high compression, Lovenox 40mg SC daily ASSESSMENT AND PLAN: This is a 61-year-old male with post-obstructive pneumonia secondary to right lung mass. PROBLEMS: 1. Paroxysmal atrial fibrillation: converted to sinus rhythm spontaneously. Initiated Eliquis 5mg twice a day. will continue with digoxin daily and metoprolol bid 2. Post-obstructive pneumonia: Continue to appreciate the assistance of pulmonary/critical care. Leukocytosis has remained around 12. Remains on IV Vancomycin and Zosyn. Renal function appropriate. Blood cultures are negative. Obtaining repeat ABG. Patient on nasal cannula. Continue with Duonebs and Albuterol. Lasix as needed as long as blood pressure can sustain diuresis. 3. Lung mass: CT-guided biopsy performed. Pending pathology results. 4. Hypotension: resolved. 6. Diabetes mellitus: Sliding scale insulin, fingersticks before meals and at bedtime, hypoglycemic protocol. 7. COPD: Continue with Atrovent. 8. Dyslipidemia: Continue with Simvastatin. 9. Vitamin D deficiency: Continue with supplementation. 10. Schizophrenia, paranoid type: As documented by psychiatry note in 2002. Continue with Risperdal. DISPOSITION: Admitted to the ICU. Continue to appreciate the assistance of pulmonary/critical care. Monitor heart rate. Adjust medications as needed. Pending pathology results from CT-guided biopsy for right lung mass. VS,Fishbone, I+O VS, Fishbone, I+O Laboratory Tests 03/05/17 04:10 Red Blood Count 3.52 L, Mean Corpuscular Volume 92.0, Mean Corpuscular Hemoglobin 29.8, Mean Corpuscular Hemoglobin Concent 32.4, Red Cell Distribution Width 16.5 H, Calcium Level 9.3, Aspartate Amino Transf (AST/SGOT) 124 H, Alanine Aminotransferase (ALT/SGPT) 122 H, Alkaline Phosphatase 266 H, Total Bilirubin 0.3, Total Protein 5.9 L, Albumin 1.8 L Vital Signs Date Time Temp Pulse Resp B/P (MAP) Pulse Ox O2 Delivery O2 Flow Rate FiO2 03/05/17 09:14 92 134/80 03/05/17 08:00 98.5 22 93 Nasal Cannula 3.0 03/03/17 13:16 35 I&O- Last 24 Hours up to 6 AM 03/06/17 06:00 Intake Total 270 ml Output Total 550 ml Balance -280 ml DRE BLACKBURN MD Mar 05, 2017 12:30
[2017-03-05 16:00] VITALS: BP 116/75
[2017-03-05 20:00] VITALS: BP 128/82
[2017-03-05] MEDS: risperiDONE 3 MG TAB PO SCH (20:11)
[2017-03-05] MEDS: SIMVASTATIN 20 MG TAB PO SCH (20:11)
[2017-03-06] VITALS (7 sets, daily range): BP systolic 107–149; BP diastolic 62–84; O2SAT 92
[2017-03-06] MEDS: PIPERACILLIN/TAZOBACTAM SOD 3.375 GM in APPROPRIATE DILUENT 1 EA IV SCH ×4 (00:51→19:14)
[2017-03-06] MEDS: IPRATROPIUM 0.5MG/ALBUTEROL 2.5MG INH SOL UD 3ML (DUONEB)(J7620) NEB SCH ×4 (00:57→19:12)
[2017-03-06 04:48] LABS: MEAN CORPUSCULAR HEMOGLOBIN 29.5 pg (27.0-33.0); MEAN CORPUSCULAR VOLUME 92.1 fl (80.0-96.0); PLATELET COUNT, AUTOMATED 187 10^3/uL (150-450); RED CELL DISTRIBUTION WIDTH 16.5 % (11.5-14.5)
[2017-03-06] MEDS: VANCOMYCIN HCL 1,000 MG, VIAL MATE ADAPTER 1 EACH in D5W 250 ML IV SCH ×2 (04:52→17:52)
[2017-03-06] MEDS: SLF 3 ML SYR IV SCH ×3 (04:52→21:44)
[2017-03-06 05:00] LABS: POS COUNT POS FLAG; POSITIVE MORPH POS FLAG
[2017-03-06 05:01] LABS: ADD MANUAL DIFFER YES; DIFF SLIDE NUMBER 10
[2017-03-06 05:25] LABS: ALBUMIN 1.8 GM/DL (3.2-5.2); ALBUMIN/GLOBULIN RATIO 0.41 (1.00-1.93); ALKALINE PHOSPHATASE 292 U/L (45-117); ALT/SGPT 198 U/L (12-78); ANION GAP 6 MEQ/L (8-16); AST/SGOT 201 U/L (7-37); BILIRUBIN,TOTAL 0.5 MG/DL (0.2-1.0); BLOOD UREA NITROGEN 14 MG/DL (7-18); CALCIUM LEVEL 8.9 MG/DL (8.8-10.2); CARBON DIOXIDE LEVEL 33 MEQ/L (21-32); CHLORIDE LEVEL 101 MEQ/L (98-107); CREATININE FOR GFR 0.82 MG/DL (0.70-1.30); GLOMERULAR FILTRATION RATE > 60.0 (>49); GLUCOSE, FASTING 104 MG/DL (80-110); MAGNESIUM LEVEL 2.3 MG/DL (1.8-2.4); POTASSIUM SERUM 4.9 MEQ/L (3.5-5.1); SODIUM LEVEL 140 MEQ/L (136-145); TOTAL PROTEIN 6.2 GM/DL (6.4-8.2)
[2017-03-06 06:32] LABS: ANISOCYTOSIS 1+
[2017-03-06 06:34] LABS: POLYCHROMASIA 1+
[2017-03-06] MEDS ORDERED: GASTROGRAFIN SOLUTION 30ML PO ONE (07:45)
[2017-03-06] MEDS ORDERED: GASTROGRAFIN SOLUTION 30ML (Q9963) PO ONE (08:15)
--- NOTE | 2017-03-06 08:39 | IPNPDOC ---
Date Seen The patient was seen on 03/06/17. Progress Note SUBJECTIVE: Patient is a 61-year-old male with post-obstructive pneumonia secondary to right lung mass. Patient is evaluated at bedside this morning. He is on nasal cannula. Feels as though is breathing has improved. Admits to right upper quadrant abdominal pain, but refuses to have any further testing or imaging done. Says his breakfast was cancelled because of the CT abdomen and pelvis with IV/oral contrast that was ordered. Appears quite upset by this. Patient is alert and oriented x3 and seems to understand that he possibly has cancer, but it is not clear that he understands the full gravity of his situation. Still a FULL CODE. Admits to continued cough productive of phlegm that he describes as "milk" colored. Denies fever, night sweats, chills , chest pain, shortness of breath. OBJECTIVE PHYSICAL EXAMINATION: VITAL SIGNS: Please see below. GENERAL: Obese male, somewhat raged appearing, appears older than stated age, wearing hospital gown, nasal cannula in place HEENT: Atraumatic, normocephalic, PERRL, EOMI, oral mucosa appears pink and moist, nasal septum with nasal cannula in place, nares are patent, full de CARDIOVASCULAR: Cardiac sounds are appreciated, regular heart rate and rhythm, no appreciable murmur, rub, click RESPIRATORY: Improved breath sounds, coarse throughout; adequate inspiratory and expiratory airway excursion, lung sounds appreciated bilaterally, no wheeze , rhonchi, crackles ABDOMINAL: Round, soft, tender in the right upper quadrant with palpation, non- distended, no organomegaly, no rebound, no guarding, bowel sounds appreciated EXTREMITIES: Dry skin appreciated, mild stasis dermatitis appreciated on lower extremities bilaterally, radial and posterior tibial pulses equal and symmetrical, +2, +2 pitting edema appreciated in bilateral lower extremities, dry skin appreciated on the upper extremities bilaterally NEUROLOGICAL: CN II-XII grossly intact PSYCHOLOGICAL: Alert and conversant LABORATORY DATA: Please see below. MICROBIOLOGY: Please see below. DVT prophylaxis ordered?: TEDs and sequentials, knee high compression, Lovenox 40mg SC daily ASSESSMENT AND PLAN: This is a 61-year-old male with post-obstructive pneumonia secondary to right lung mass. PROBLEMS: 1. Right upper quadrant abdominal pain: Liver enzymes continue to increase ( AST 201, ALT 198, alkaline phosphatase 292). Patient has refused imaging ordered; also refuses abdominal ultrasound. Competent and capable of making decisions. 2. Post-obstructive pneumonia: Leukocytosis has increased, but patient has remained afebrile. Remains on IV Vancomycin and Zosyn. Have added Lasix 40mg IV daily. Remains on nasal cannula. Has not been requiring BiPAP. 3. Paroxysmal atrial fibrillation: Converted to sinus rhythm spontaneously. Initiated Eliquis 5mg twice a day. Will continue with Digoxin daily and Metoprolol twice a day. 4. Lung mass: CT-guided biopsy performed. Pending pathology results. Per pathology, should be read today. 5. Diabetes mellitus: Sliding scale insulin, fingersticks before meals and at bedtime, hypoglycemic protocol. 6. COPD: Continue with Atrovent. 7. Dyslipidemia: Continue with Simvastatin. 8. Vitamin D deficiency: Continue with supplementation. 9. Schizophrenia, paranoid type: As documented by psychiatry note in 2002. Continue with Risperdal. DISPOSITION: Transferred to the medical-surgical unit with remote telemetry. Awaiting pathology report, which should be resulted today. Could consider consulting hematology/oncology based on result. Patient is still a FULL CODE. VS, I&O, 24H, [facility] Vital Signs/I&O Vital Signs Date Time Temp Pulse Resp B/P (MAP) Pulse Ox O2 Delivery O2 Flow Rate FiO2 03/06/17 07:11 92 Nasal Cannula 3.0 03/06/17 04:00 98.2 91 24 135/81 (99) 03/03/17 13:16 35 Laboratory Data 24H LABS Laboratory Tests 2 03/05/17 11:18: Bedside Glucose (Misc Panel) 151H 03/05/17 16:32: Bedside Glucose (Misc Panel) 121H 03/06/17 04:16: Immature Granulocyte % (Auto) , Nucleated Red Blood Cells % (auto) 3.1H, Neutrophils 71, Lymphocytes (Manual) 15L, Monocytes (Manual) 7, Metamyelocytes 3H, Myelocytes 4H, Platelet Estimate NORMAL, Polychromasia 1+, Basophilic Stippling 1+, Anisocytosis 1+, Anion Gap 6L, Glomerular Filtration Rate > 60.0, Blood Urea Nitrogen 14, Creatinine 0.82, Sodium Level 140, Potassium Level 4.9, Chloride Level 101, Carbon Dioxide Level 33H, Calcium Level 8.9, Aspartate Amino Transf (AST/SGOT) 201H, Alanine Aminotransferase (ALT/SGPT) 198H, Alkaline Phosphatase 292H, Total Bilirubin 0.5#, Total Protein 6.2L, Albumin 1.8L, Magnesium Level 2.3, Albumin/Globulin Ratio 0.41L CBC/BMP Laboratory Tests 03/06/17 04:16 Red Blood Count 3.56 L, Mean Corpuscular Volume 92.1, Mean Corpuscular Hemoglobin 29.5, Mean Corpuscular Hemoglobin Concent 32.0, Red Cell Distribution Width 16.5 H, Calcium Level 8.9, Aspartate Amino Transf (AST/SGOT) 201 H, Alanine Aminotransferase (ALT/SGPT) 198 H, Alkaline Phosphatase 292 H, Total Bilirubin 0.5 #, Total Protein 6.2 L, Albumin 1.8 L Microbiology Microbiology 02/27/17 Blood Culture - Final, Complete NO GROWTH AFTER 5 DAYS 02/27/17 Blood Culture - Final, Complete NO GROWTH AFTER 5 DAYS 02/27/17 Influenza Virus Type A Antigen - Final, Complete 02/27/17 Influenza Virus Type B Antigen - Final, Complete 02/27/17 Urine Culture - Final, Complete PARISH MILLAN DO Mar 06, 2017 08:40
[2017-03-06] MEDS: HumaLOG INSULIN (NovoLOG) PER UNIT SC SCH ×4 (09:05→21:00)
[2017-03-06] MEDS: METOPROLOL TART 25 MG TABLET PO SCH ×2 (09:06→21:00)
[2017-03-06] MEDS: FUROSEMIDE 40 MG/4 ML VIAL (J1940) IV SCH (09:07)
[2017-03-06] MEDS: PANTOPRAZOLE 40MG TAB (PROTONIX) PO SCH (09:07)
[2017-03-06] MEDS: MAGNESIUM OXIDE 400 MG TAB (MAG-OX) PO SCH ×2 (09:07→21:00)
[2017-03-06] MEDS: APIXABAN 5 MG TAB (ELIQUIS) PO SCH (09:07)
[2017-03-06] MEDS: ASPIRIN 81 MG ENTERIC TAB PO SCH (09:07)
[2017-03-06] MEDS: DIGOXIN 0.125 MG TAB PO SCH (09:07)
[2017-03-06] MEDS: SIMVASTATIN 20 MG TAB PO SCH (21:00)
[2017-03-06] MEDS: risperiDONE 3 MG TAB PO SCH (21:00)
[2017-03-07] MEDS: PIPERACILLIN/TAZOBACTAM SOD 3.375 GM in APPROPRIATE DILUENT 1 EA IV SCH ×4 (01:00→18:51)
[2017-03-07] MEDS: IPRATROPIUM 0.5MG/ALBUTEROL 2.5MG INH SOL UD 3ML (DUONEB)(J7620) NEB SCH ×4 (02:41→19:46)
[2017-03-07] MEDS: METOPROLOL TART 25 MG TABLET PO SCH ×2 (04:06→21:06)
[2017-03-07] MEDS: VANCOMYCIN HCL 1,000 MG, VIAL MATE ADAPTER 1 EACH in D5W 250 ML IV SCH ×2 (04:28→17:40)
[2017-03-07] MEDS: SLF 3 ML SYR IV SCH ×3 (04:29→21:04)
[2017-03-07 04:41] VITALS: BP 107/58
[2017-03-07 06:00] VITALS: BP 112/61
[2017-03-07] MEDS: HumaLOG INSULIN (NovoLOG) PER UNIT SC SCH ×4 (07:58→21:00)
[2017-03-07] MEDS: MAGNESIUM OXIDE 400 MG TAB (MAG-OX) PO SCH ×2 (07:59→21:05)
[2017-03-07] MEDS: ASPIRIN 81 MG ENTERIC TAB PO SCH (07:59)
[2017-03-07] MEDS: DIGOXIN 0.125 MG TAB PO SCH (07:59)
[2017-03-07] MEDS: PANTOPRAZOLE 40MG TAB (PROTONIX) PO SCH (07:59)
[2017-03-07] MEDS: FUROSEMIDE 40 MG/4 ML VIAL (J1940) IV SCH (08:00)
[2017-03-07 10:00] VITALS: BP 110/58
--- NOTE | 2017-03-07 12:42 | IPNPDOC ---
Date Seen The patient was seen on 03/07/17. Progress Note SUBJECTIVE: Patient is a 61-year-old male with post-obstructive pneumonia secondary to right lung mass. Patient is evaluated at bedside this morning. He is on nasal cannula. Feels as though is breathing is about the same. Is sitting on the edge of the bed with his legs hanging over the edge. Is not all that conversant at today's evaluation. Patient has elected to not pursue any further imaging or testing. However, he remains a FULL CODE. Patient states he has no family or immediate friends. It is not clear if patient understands the gravity of his current situation. OBJECTIVE PHYSICAL EXAMINATION: VITAL SIGNS: Please see below. GENERAL: Obese male, somewhat raged appearing, appears older than stated age, wearing shirt and scrub bottoms, nasal cannula in place HEENT: Atraumatic, normocephalic, PERRL, EOMI, oral mucosa appears pink and moist, nasal septum with nasal cannula in place, nares are patent CARDIOVASCULAR: Cardiac sounds are again diminished and faded out by coarse breath sounds, regular heart rate and rhythm, tachycardic, no appreciable murmur , rub, click RESPIRATORY: Coarse breath sounds throughout; however, somewhat diminished in the right lower lung lobe, adequate inspiratory and expiratory airway excursion , lung sounds appreciated bilaterally, no wheeze, crackles, or rhonchi ABDOMINAL: Round, soft, tender in the right upper quadrant with palpation, non- distended, no organomegaly, no rebound, no guarding, bowel sounds appreciated EXTREMITIES: Dry skin appreciated, mild stasis dermatitis appreciated on lower extremities bilaterally, radial and posterior tibial pulses equal and symmetrical, +2, +2 pitting edema appreciated in bilateral lower extremities, dry skin appreciated on the upper extremities bilaterally NEUROLOGICAL: CN II-XII grossly intact PSYCHOLOGICAL: Alert and conversant LABORATORY DATA: Please see below. MICROBIOLOGY: Please see below. DVT prophylaxis ordered?: TEDs and sequentials, knee high compression ASSESSMENT AND PLAN: This is a 61-year-old male with post-obstructive pneumonia secondary to right lung mass. PROBLEMS: 1. Right upper quadrant abdominal pain: Today's labs are pending. Patient has so far refused further testing or investigations. Determining capacity and competence. 2. Post-obstructive pneumonia: Today's labs are pending. Has remained afebrile. Does become somewhat tachycardic with any movement, likely related to strain on lung and heart due to encircling mainstem bronchus and carinal mass. Remains on NC and Lasix IV daily. 3. Paroxysmal atrial fibrillation: Converted to sinus rhythm spontaneously. Initiated Eliquis 5mg twice a day which is currently on hold for tentative bronchoscopy scheduled for Monday. Will continue with Digoxin daily and Metoprolol twice a day. 4. Lung mass: CT-guided biopsy performed. Pathology did not reveal any overt malignancy. Have discussed with patient alternate procedures in order to identify mass. Is tentatively scheduled for bronchoscopy on Monday with pulmonology. Patient will need to be NPO prior to procedure on Monday. However , patient has refused any further testing or investigation. Need to determine capacity and competence to make decisions. It is not entirely clear that patient understands or comprehends gravity of current clinical/medical situation. 5. Diabetes mellitus: Sliding scale insulin, fingersticks before meals and at bedtime, hypoglycemic protocol. 6. COPD: Continue with Atrovent. 7. Dyslipidemia: Continue with Simvastatin. 8. Vitamin D deficiency: Continue with supplementation. 9. Schizophrenia, paranoid type: As documented by psychiatry note in 2002. Continue with Risperdal. DISPOSITION: Transferred to the medical-surgical unit with remote telemetry. Pathology results not conclusive for overt malignancy. Tentatively scheduled bronchoscopy on Monday with pulmonology. Patient will need to NPO for procedure. Determining capacity and competence. Appreciate PFS's input. VS, I&O, 24H, Fishbone Vital Signs/I&O Vital Signs Date Time Temp Pulse Resp B/P (MAP) Pulse Ox O2 Delivery O2 Flow Rate FiO2 03/07/17 10:00 97.3 96 20 110/58 (75) 92 Nasal Cannula 2.0 03/03/17 13:16 35 I&O- Last 24 Hours up to 6 AM 03/08/17 06:00 Intake Total 240 ml Output Total 425 ml Balance -185 ml Laboratory Data 24H LABS Laboratory Tests 2 03/06/17 16:49: Bedside Glucose (Misc Panel) 106 03/06/17 20:38: Bedside Glucose (Misc Panel) 233H 03/07/17 06:43: Bedside Glucose (Misc Panel) 141H 03/07/17 11:34: Bedside Glucose (Misc Panel) 179H Microbiology Microbiology 02/27/17 Blood Culture - Final, Complete NO GROWTH AFTER 5 DAYS 02/27/17 Blood Culture - Final, Complete NO GROWTH AFTER 5 DAYS 02/27/17 Influenza Virus Type A Antigen - Final, Complete 02/27/17 Influenza Virus Type B Antigen - Final, Complete 02/27/17 Urine Culture - Final, Complete PARISH MILLAN DO Mar 07, 2017 12:42
[2017-03-07 14:00] VITALS: BP 120/60
[2017-03-07 18:00] VITALS: BP 124/81
[2017-03-07] MEDS: risperiDONE 3 MG TAB PO SCH (21:05)
[2017-03-07] MEDS: SIMVASTATIN 20 MG TAB PO SCH (21:05)
[2017-03-07] MEDS: LACTOBACILLUS ACIDOPHILUS CAP (BACID) PO SCH (21:05)
[2017-03-07] MEDS: ACETAMINOPHEN TAB 650MG DOSE (2X325MG) PO PRN (21:06)
[2017-03-07 22:00] VITALS: BP 110/57
[2017-03-08] VITALS (9 sets, daily range): BP systolic 114–160; BP diastolic 56–91
[2017-03-08] MEDS: PIPERACILLIN/TAZOBACTAM SOD 3.375 GM in APPROPRIATE DILUENT 1 EA IV SCH ×4 (00:55→18:48)
[2017-03-08] MEDS: IPRATROPIUM 0.5MG/ALBUTEROL 2.5MG INH SOL UD 3ML (DUONEB)(J7620) NEB SCH ×4 (01:15→21:08)
[2017-03-08] MEDS ORDERED: FUROSEMIDE 40 MG/4 ML VIAL (J1940) IV ONE (02:00)
[2017-03-08 02:23] LABS: ABG BASE EXCESS 13.4 (-2.0-2.0); ABG HCO3 40.9 MEQ/L (22.0-26.0); ABG PARTIAL PRESSURE O2 66.6 mmHg (75.0-100.0); ABG pH (ARTERIAL) 7.398 UNITS (7.350-7.450)
[2017-03-08 02:24] LABS: ABG PARTIAL PRESSURE CO2 67.9 mmHg (35.0-45.0)
--- NOTE | 2017-03-08 02:30 | REPUSA ---
CLINICAL HISTORY: Congestion. COMMENTS: Complete opacification of the right hemithorax. Probably secondary to large right pleural effusion wi th passive atelectatic airspace disease in the right lung. The cardiac silhouette is enlarged. There is evidence for pulmonary venous congestion compatible with CHF. There is no definite radiographic evidence for a lung mass. Bony structures appear normal. IMPRESSION: 1. Enlarged cardiac silhouette. 2. Pulmonary venous congestion compatible with CHF. 3. Complete opacification of the right hemithorax. Probably large left pleural effusion with passive atelectatic airspace disease in the right lung. Thank you for your kind referral of this patient.
[2017-03-08] MEDS: VANCOMYCIN HCL 1,000 MG, VIAL MATE ADAPTER 1 EACH in D5W 250 ML IV SCH ×2 (05:03→17:35)
[2017-03-08] MEDS: SLF 3 ML SYR IV SCH ×3 (05:03→20:56)
[2017-03-08 06:08] LABS: MEAN CORPUSCULAR HEMOGLOBIN 29.2 pg (27.0-33.0); MEAN CORPUSCULAR HGB CONC 31.5 g/dl (32.0-36.5); MEAN CORPUSCULAR VOLUME 92.8 fl (80.0-96.0); PLATELET COUNT, AUTOMATED 167 10^3/uL (150-450); RED CELL DISTRIBUTION WIDTH 16.9 % (11.5-14.5); WHITE BLOOD COUNT 15.7 10^3/uL (4.0-10.0)
[2017-03-08 06:14] LABS: ADD MANUAL DIFFER YES; DIFF SLIDE NUMBER 86; POS COUNT POS FLAG; POSITIVE MORPH POS FLAG
[2017-03-08 06:28] LABS: ALBUMIN 2.1 GM/DL (3.2-5.2); ALBUMIN/GLOBULIN RATIO 0.51 (1.00-1.93); ALKALINE PHOSPHATASE 296 U/L (45-117); ALT/SGPT 287 U/L (12-78); ANION GAP 5 MEQ/L (8-16); AST/SGOT 212 U/L (7-37); BILIRUBIN,TOTAL 0.6 MG/DL (0.2-1.0); BLOOD UREA NITROGEN 14 MG/DL (7-18); CARBON DIOXIDE LEVEL 43 MEQ/L (21-32); CHLORIDE LEVEL 95 MEQ/L (98-107); CREATININE FOR GFR 0.98 MG/DL (0.70-1.30); GLOMERULAR FILTRATION RATE > 60.0 (>49); GLUCOSE, FASTING 171 MG/DL (80-110); POTASSIUM SERUM 3.2 MEQ/L (3.5-5.1); SODIUM LEVEL 143 MEQ/L (136-145); TOTAL PROTEIN 6.2 GM/DL (6.4-8.2)
[2017-03-08] MEDS ORDERED: GASTROGRAFIN SOLUTION 30ML PO ONE (07:30)
[2017-03-08] MEDS: HumaLOG INSULIN (NovoLOG) PER UNIT SC SCH ×4 (07:40→20:57)
[2017-03-08 08:00] LABS: BANDS 7 % (< 11)
[2017-03-08] MEDS ORDERED: GASTROGRAFIN SOLUTION 30ML (Q9963) PO ONE (08:00)
[2017-03-08] MEDS ORDERED: ISOVUE-370 76% 100ML VIAL (Q9967) As Ordered ONE (08:53)
--- NOTE | 2017-03-08 09:34 | REP ---
Clinical: Right upper quadrant pain with increasing liver function tests. Technique: Axial contrast enhanced images from the lung bases to the pubic symphysis using oral (per protocol) and 100 ml Isovue 370 intravenous contrast material with coronal and sagittal re-formations. Comparison: None. Findings: The liver demonstrates very subtle rounded low density changes highly suggestive of an infiltrating process possibly metastatic/neoplastic. Adenopathy at the makayla hepatis adjacent to the head of the pancreas is appreciated with lymph nodes measuring up to 3 cm. The gallbladder is not identified. Spleen, pancreas, bilateral adrenal glands and kidneys appear normal. The enteric system is without obstruction or acute inflammatory process. A small amount of free fluid is identified adjacent to the liver and along the right paracolic gutter. Pelvis demonstrates normal bladder and age appropriate prostate/seminal vesicles. No free air. No retroperitoneal adenopathy. Abdominal aorta without aneurysm or dissection. Lung bases demonstrate large right pleural effusion with underlying consolidation/partial collapse as well as left perihilar and lingular atelectasis. Impression: 1. Very subtle infiltrating process to the liver is suggested along with lymph nodes in the makayla hepatis measuring up to 3 cm concerning for primary malignancy and/or metastatic disease. Consider follow-up contrast-enhanced MRI or CT using liver mass protocol. 2. Large right pleural effusion with partial collapse to the visualized right middle lobe and right lower lobe along with left perihilar and lingular atelectasis. Signed by Sid Mckinnon MD 03/08/2017 09:26 A
[2017-03-08] MEDS: POTASSIUM CHLORIDE 10 MEQ SR TABLET PO SCH ×2 (09:37→12:22)
[2017-03-08] MEDS: DIGOXIN 0.125 MG TAB PO SCH (09:37)
[2017-03-08] MEDS: MAGNESIUM OXIDE 400 MG TAB (MAG-OX) PO SCH ×2 (09:38→20:54)
[2017-03-08] MEDS: PANTOPRAZOLE 40MG TAB (PROTONIX) PO SCH (09:38)
[2017-03-08] MEDS: ASPIRIN 81 MG ENTERIC TAB PO SCH (09:38)
[2017-03-08] MEDS: FUROSEMIDE 40 MG/4 ML VIAL (J1940) IV SCH ×2 (09:39→17:35)
[2017-03-08] MEDS: LACTOBACILLUS ACIDOPHILUS CAP (BACID) PO SCH ×2 (09:39→20:53)
[2017-03-08] MEDS: METOPROLOL TART 25 MG TABLET PO SCH ×2 (09:40→20:56)
--- NOTE | 2017-03-08 10:02 | IPNPDOC ---
Date Seen The patient was seen on 03/08/17. Progress Note SUBJECTIVE: Patient is a 61-year-old male with post-obstructive pneumonia secondary to right lung mass. Patient is evaluated at bedside this morning. He is on nasal cannula. Feels as though is breathing is about the same. Is sitting on the edge of the bed with his legs hanging over the edge. Is filling out an itemized possession's bag. Have discussed with patient the fluid in his lung and the findings on CT abdomen and pelvis. Patient would like to think about obtaining further testing. OBJECTIVE PHYSICAL EXAMINATION: VITAL SIGNS: Please see below. GENERAL: Obese male, somewhat raged appearing, appears older than stated age, wearing shirt and scrub bottoms, nasal cannula in place HEENT: Atraumatic, normocephalic, PERRL, EOMI, oral mucosa appears pink and moist, nasal septum with nasal cannula in place, nares are patent CARDIOVASCULAR: Cardiac sounds are again diminished and faded out by coarse breath sounds, regular heart rate and rhythm, tachycardic, no appreciable murmur , rub, click RESPIRATORY: Coarse breath sounds throughout; rhonchi throughout, adequate inspiratory and expiratory airway excursion, lung sounds appreciated bilaterally , no wheeze, crackles ABDOMINAL: Round, soft, tender in the right upper quadrant with palpation, non- distended, no organomegaly, no rebound, no guarding, bowel sounds appreciated EXTREMITIES: Dry skin appreciated, mild stasis dermatitis appreciated on lower extremities bilaterally, radial and posterior tibial pulses equal and symmetrical, +2, +2 pitting edema appreciated in bilateral lower extremities, dry skin appreciated on the upper extremities bilaterally NEUROLOGICAL: CN II-XII grossly intact PSYCHOLOGICAL: Alert and conversant IMAGING: CT abdomen and pelvis with oral and IV contrast IMPRESSION: 1. Very subtle infiltrating process to the liver is suggested along with lymph nodes in the makayla hepatis measuring up to 3 cm concerning for primary malignancy and/or metastatic disease. Consider follow-up contrast-enhanced MRI or CT using liver mass protocol. 2. Large right pleural effusion with partial collapse to the visualized right middle lobe and right lower lobe along with left perihilar and lingular atelectasis. LABORATORY DATA: Please see below. MICROBIOLOGY: Please see below. DVT prophylaxis ordered?: TEDs and sequentials, knee high compression ASSESSMENT AND PLAN: This is a 61-year-old male with post-obstructive pneumonia secondary to right lung mass. PROBLEMS: 1. Diarrhea: Patient had five bowel movements over the last 24 hours. He is not on bowel regimen. He has been on antibiotics since admission. Have added Bacid. Obtaining GI panel. 2. Right upper quadrant abdominal pain: CT of the abdomen and pelvis with impression reported above. There is a concern for either primary or metastatic malignancy. Have recommended that patient have therapeutic thoracentesis. Patient would like to take some time to consider doing further testing. 3. Post-obstructive pneumonia with large pleural effusion: Remains on Vancomycin and Zosyn IV. Continues with a leukocytosis which could be reactive and less likely infectious due to large lung mass and question about primary/ metastatic malignancy in the liver. Patient has remained afebrile. Have increased Lasix to twice a day. 4. Paroxysmal atrial fibrillation: Had a run of atrial fibrillation. Eliquis has remained on hold as patient is tentatively scheduled for Monday. Continue with Digoxin and Metoprolol. 5. Lung mass: CT-guided biopsy performed. Pathology did not reveal any overt malignancy. Tentatively scheduled for bronchoscopy on Monday with pulmonology. Patient will need to be NPO prior to procedure on Monday. It is not entirely clear that patient understands or comprehends gravity of current clinical/ medical situation. 6. Diabetes mellitus: Sliding scale insulin, fingersticks before meals and at bedtime, hypoglycemic protocol. 7. COPD: Continue with Atrovent. 8. Dyslipidemia: Continue with Simvastatin. 9. Vitamin D deficiency: Continue with supplementation. 10. Schizophrenia, paranoid type: As documented by psychiatry note in 2002. Continue with Risperdal. DISPOSITION: Admitted to the medical-surgical unit with remote telemetry. Pathology results not conclusive for overt malignancy. Tentatively scheduled bronchoscopy on Monday with pulmonology. Patient will need to NPO for procedure. PFS continues to investigate community social workers who may be involved with patient's care. Recommend therapeutic thoracentesis for large pleural effusion. VS, I&O, 24H, Fishbone Vital Signs/I&O Vital Signs Date Time Temp Pulse Resp B/P (MAP) Pulse Ox O2 Delivery O2 Flow Rate FiO2 03/08/17 09:40 98 124/68 03/08/17 06:00 97.2 24 95 Nasal Cannula 4.0 03/03/17 13:16 35 Laboratory Data 24H LABS Laboratory Tests 2 03/07/17 11:34: Bedside Glucose (Misc Panel) 179H 03/07/17 16:25: Bedside Glucose (Misc Panel) 103 03/07/17 21:03: Bedside Glucose (Misc Panel) 167H 03/08/17 00:49: Bedside Glucose (Misc Panel) 140H 03/08/17 02:15: Blood Gas Bicarbonate Standard 37.0H, Arterial Blood pH 7.398, Arterial Blood Partial Pressure CO2 67.9*H, Arterial Blood Partial Pressure O2 66.6L, Arterial Blood Total CO2 43.0H, Arterial Blood HCO3 40.9H, Arterial Blood Base Excess 13.4H, Arterial Blood Oxygen Saturation 91.3L 03/08/17 05:52: Immature Granulocyte % (Auto) , Nucleated Red Blood Cells % (auto) 2.9H, Neutrophils 64, Band Neutrophils 7, Lymphocytes (Manual) 22, Monocytes (Manual) 3, Metamyelocytes 3H, Atypical Lymphocytes 1, Platelet Estimate NORMAL, Anion Gap 5L, Glomerular Filtration Rate > 60.0, Blood Urea Nitrogen 14, Creatinine 0.98, Sodium Level 143, Potassium Level 3.2#L, Chloride Level 95L, Carbon Dioxide Level 43H, Calcium Level 9.0, Aspartate Amino Transf (AST/SGOT) 212H, Alanine Aminotransferase (ALT/SGPT) 287H, Alkaline Phosphatase 296H, Total Bilirubin 0.6, Total Protein 6.2L, Albumin 2.1L, Albumin/Globulin Ratio 0.51L CBC/BMP Laboratory Tests 03/08/17 05:52 Red Blood Count 3.73 L, Mean Corpuscular Volume 92.8, Mean Corpuscular Hemoglobin 29.2, Mean Corpuscular Hemoglobin Concent 31.5 L, Red Cell Distribution Width 16.9 H, Calcium Level 9.0, Aspartate Amino Transf (AST/SGOT) 212 H, Alanine Aminotransferase (ALT/SGPT) 287 H, Alkaline Phosphatase 296 H, Total Bilirubin 0.6, Total Protein 6.2 L, Albumin 2.1 L Microbiology Microbiology 02/27/17 Blood Culture - Final, Complete NO GROWTH AFTER 5 DAYS 02/27/17 Blood Culture - Final, Complete NO GROWTH AFTER 5 DAYS 02/27/17 Influenza Virus Type A Antigen - Final, Complete 02/27/17 Influenza Virus Type B Antigen - Final, Complete 02/27/17 Urine Culture - Final, Complete OOSTHUIZENPARISH Mar 08, 2017 10:02
--- NOTE | 2017-03-08 15:23 | REP ---
Portable chest x-ray: Single sitting AP view. History: Post thoracentesis. Comparison study 1:56 a.m. on this date. Findings: An almost completely opacified right hemithorax is again seen with some residual aeration in the right upper lobe unchanged. There is no evidence of pneumothorax. EKG monitoring electrodes and oxygen delivery tubing are seen. No new infiltrate is seen. Impression: No pneumothorax seen. Nearly completely opacified right hemithorax. There are fractures of the right 7th and 9th lateral ribs segments again noted. These are unchanged from February 27, [address] Signed by Reymundo Patel MD 03/08/2017 04:10 P
--- NOTE | 2017-03-08 16:39 | REP ---
ULTRASOUND GUIDED RIGHT THORACENTESIS: The procedure was performed under the direct supervision of Dr. Patel. The risks and benefits of the procedure were explained to the patient and informed consent was obtained. The right pleural effusion was localized using ultrasound guidance. The skin was prepped and draped in a sterile fashion. 1% Xylocaine was used as a local anesthetic. An #8-Cameroonian multisidehole catheter was inserted using trocar technique. 1500 mL of red-colored fluid was withdrawn and sent to the lab. The patient tolerated the procedure well and there were no immediate complications. Reviewed by FELICITAS Saxena 03/08/2017 04:41 PEdited and Signed by Reymundo Patel MD 03/08/2017 04:51 P
--- NOTE | 2017-03-08 16:41 | REP ---
Chest x-ray: Two views. History: Status post right thoracentesis with removal of 1500 mL of pleural fluid. Comparison is made with portable film done 02:41 p.m. on this date. Findings: The left lung remains unchanged and well inflated. There is improved right pleural effusion. This is best visualized adjacent to the small amount of aeration in the right upper lobe superiorly and laterally. However, the right hemithorax remains largely opacified due to postobstructive consolidation in the right lung. The right mainstem bronchial silhouette is amputated abruptly. There is no evidence of pneumothorax or other complication. Signed by Reymundo Patel MD 03/08/2017 04:51 P
[2017-03-08 17:21] LABS: LDH, BODY FLUID 160 U/L (NOT ESTABLISHED); TOTAL PROTEIN, BODY FLUID 1.3 G/DL (NOT ESTABLISHED)
[2017-03-08 17:38] LABS: BF MONONUCLEAR CELL % 93.2 % (0-0); BF POLYMORPHONUCLEAR CELL % 6.8 % (0-0); RBC BODY FLUID 9 10^3/uL (<2); WBC BODY FLUID 2478 /uL (0-10)
[2017-03-08 17:43] LABS: BF DIFF IF INDICATED? YES (NO)
[2017-03-08] MEDS: risperiDONE 3 MG TAB PO SCH (20:54)
[2017-03-08] MEDS: SIMVASTATIN 20 MG TAB PO SCH (20:54)
[2017-03-09] VITALS (8 sets, daily range): BP systolic 97–138; BP diastolic 54–78
[2017-03-09 00:51] LABS: BLOOD UREA NITROGEN 13 MG/DL (7-18); CALCIUM LEVEL 8.6 MG/DL (8.8-10.2); CHLORIDE LEVEL 93 MEQ/L (98-107); CREATININE FOR GFR 0.97 MG/DL (0.70-1.30); GLOMERULAR FILTRATION RATE > 60.0 (>49); GLUCOSE, FASTING 133 MG/DL (80-110); MAGNESIUM LEVEL 2.2 MG/DL (1.8-2.4); POTASSIUM SERUM 3.3 MEQ/L (3.5-5.1); SODIUM LEVEL 143 MEQ/L (136-145)
[2017-03-09] MEDS: PIPERACILLIN/TAZOBACTAM SOD 3.375 GM in APPROPRIATE DILUENT 1 EA IV SCH ×4 (01:01→18:28)
[2017-03-09 01:08] LABS: CARBON DIOXIDE LEVEL 55 MEQ/L (21-32)
[2017-03-09] MEDS: IPRATROPIUM 0.5MG/ALBUTEROL 2.5MG INH SOL UD 3ML (DUONEB)(J7620) NEB SCH ×3 (01:24→13:14)
[2017-03-09] MEDS: SLF 3 ML SYR IV SCH ×3 (04:32→20:13)
[2017-03-09] MEDS: VANCOMYCIN HCL 1,000 MG, VIAL MATE ADAPTER 1 EACH in D5W 250 ML IV SCH (04:32)
--- NOTE | 2017-03-09 06:24 | ECGEPIP ---
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
[2017-03-09 07:03] LABS: BASO % 0.3 % (0.0-1.0); EOS % 0.1 % (0.0-3.0); IMMATURE GRANULOCYTE % 4.9 % (0-0); LYMPH # 1.9 10^3/uL (1.5-4.5); LYMPH % 13.2 % (24.0-44.0); MEAN CORPUSCULAR HEMOGLOBIN 29.7 pg (27.0-33.0); MEAN CORPUSCULAR HGB CONC 31.6 g/dl (32.0-36.5); MEAN CORPUSCULAR VOLUME 93.8 fl (80.0-96.0); MONO # 0.7 10^3/uL (0.0-0.8); NEUTROPHILS # 10.9 10^3/uL (1.8-7.7); NEUTROPHILS % 76.5 % (36.0-66.0); PLATELET COUNT, AUTOMATED 138 10^3/uL (150-450); RED CELL DISTRIBUTION WIDTH 16.8 % (11.5-14.5); WHITE BLOOD COUNT 14.2 10^3/uL (4.0-10.0)
[2017-03-09 07:27] LABS: ALKALINE PHOSPHATASE 263 U/L (45-117); ALT/SGPT 270 U/L (12-78); ANION GAP 5 MEQ/L (8-16); AST/SGOT 179 U/L (7-37); BILIRUBIN,TOTAL 0.7 MG/DL (0.2-1.0); BLOOD UREA NITROGEN 13 MG/DL (7-18); CALCIUM LEVEL 8.8 MG/DL (8.8-10.2); CARBON DIOXIDE LEVEL 43 MEQ/L (21-32); CHLORIDE LEVEL 95 MEQ/L (98-107); GLOMERULAR FILTRATION RATE > 60.0 (>49); GLUCOSE, FASTING 141 MG/DL (80-110); POTASSIUM SERUM 3.5 MEQ/L (3.5-5.1); SODIUM LEVEL 143 MEQ/L (136-145)
[2017-03-09] MEDS: POTASSIUM CHLORIDE 10 MEQ SR TABLET PO SCH ×2 (07:40→08:33)
[2017-03-09] MEDS: HumaLOG INSULIN (NovoLOG) PER UNIT SC SCH ×4 (08:33→21:00)
[2017-03-09] MEDS: FUROSEMIDE 40 MG/4 ML VIAL (J1940) IV SCH ×2 (08:33→17:43)
[2017-03-09] MEDS: PANTOPRAZOLE 40MG TAB (PROTONIX) PO SCH (08:51)
[2017-03-09] MEDS: ASPIRIN 81 MG ENTERIC TAB PO SCH (08:51)
[2017-03-09] MEDS: LACTOBACILLUS ACIDOPHILUS CAP (BACID) PO SCH ×2 (08:51→20:12)
[2017-03-09] MEDS: DIGOXIN 0.125 MG TAB PO SCH (08:52)
[2017-03-09] MEDS: MAGNESIUM OXIDE 400 MG TAB (MAG-OX) PO SCH ×2 (08:53→20:12)
[2017-03-09] MEDS: METOPROLOL TART 25 MG TABLET PO SCH ×2 (08:53→20:12)
--- NOTE | 2017-03-09 09:44 | IPNPDOC ---
Date Seen The patient was seen on 03/09/17. Progress Note SUBJECTIVE: Patient is a 61-year-old male with post-obstructive pneumonia secondary to right lung mass. Patient is evaluated at bedside this morning. He is on nasal cannula. Sitting on the edge of the bed eating breakfast. He states that he feels much better and that his breathing has improved. He went for a right-sided thoracentesis yesterday and drained 1.5L of red-colored fluid. He denies fever, night sweats, chills, chest pain, headache, urinary complaints. States that he has been having more bowel movements, but says it is related to being on antibiotics. Has been started on Bacid and a GI panel is pending. OBJECTIVE PHYSICAL EXAMINATION: VITAL SIGNS: Please see below. GENERAL: Obese male, somewhat raged appearing, appears older than stated age, wearing shirt and scrub bottoms, nasal cannula in place HEENT: Atraumatic, normocephalic, PERRL, EOMI, oral mucosa appears pink and moist, nasal septum with nasal cannula in place, nares are patent CARDIOVASCULAR: Cardiac sounds are appreciated, regular rate and rhythm, normal S1 and S2, no murmur, rub, click RESPIRATORY: Breath sounds have markedly improved, adequate inspiratory and expiratory airway excursion, lung sounds appreciated bilaterally, no wheeze, crackles, or rhonchi ABDOMINAL: Round, soft, tender in the right upper quadrant, non-distended, no organomegaly, no rebound, no guarding, bowel sounds appreciated, small incision covered with 2x2 noted on the right back from thoracentesis yesterday EXTREMITIES: Dry skin appreciated, mild stasis dermatitis appreciated on lower extremities bilaterally, radial and posterior tibial pulses equal and symmetrical, +2, +2 pitting edema appreciated in bilateral lower extremities, dry skin appreciated on the upper extremities bilaterally NEUROLOGICAL: CN II-XII grossly intact PSYCHOLOGICAL: Alert and conversant IMAGING: CT abdomen and pelvis with oral and IV contrast IMPRESSION: 1. Very subtle infiltrating process to the liver is suggested along with lymph nodes in the makayla hepatis measuring up to 3 cm concerning for primary malignancy and/or metastatic disease. Consider follow-up contrast-enhanced MRI or CT using liver mass protocol. 2. Large right pleural effusion with partial collapse to the visualized right middle lobe and right lower lobe along with left perihilar and lingular atelectasis. LABORATORY DATA: Please see below. MICROBIOLOGY: Please see below. DVT prophylaxis ordered?: TEDs and sequentials, knee high compression ASSESSMENT AND PLAN: This is a 61-year-old male with post-obstructive pneumonia secondary to right lung mass. PROBLEMS: 1. Pleural effusion, right-sided: Thoracentesis performed yesterday. 1.5L of red-colored fluid removed. Pleural fluid analysis is pending. SAAG 1.6. Post- thoracentesis chest x-ray was negative for pneumothorax. 2. Diarrhea: Patient continues to have increased number of bowel movements. Remains on Bacid. GI panel is pending. 2. Right upper quadrant abdominal pain: CT of the abdomen and pelvis with impression reported above. There is a concern for either primary or metastatic malignancy. Obtained right-sided thoracentesis yesterday which has improved patient's clinical state - his breathing has improved. Pleural fluid analysis is pending. 3. Post-obstructive pneumonia with large pleural effusion: Remains on Vancomycin and Zosyn IV. Continues with a leukocytosis (improved slightly) which could be reactive and less likely infectious due to large lung mass and question about primary/metastatic malignancy in the liver. Patient has remained afebrile. Have increased Lasix to twice a day. 4. Paroxysmal atrial fibrillation: Eliquis has remained on hold as patient is tentatively scheduled for Monday. Continue with Digoxin and Metoprolol. 5. Lung mass: CT-guided biopsy performed. Pathology did not reveal any overt malignancy. Tentatively scheduled for bronchoscopy on Monday with pulmonology. Patient will need to be NPO prior to procedure on Monday. It is not entirely clear that patient understands or comprehends gravity of current clinical/ medical situation. Obtaining psychiatric consult for further evaluation. 6. Diabetes mellitus: Sliding scale insulin, fingersticks before meals and at bedtime, hypoglycemic protocol. 7. COPD: Continue with Atrovent. 8. Dyslipidemia: Continue with Simvastatin. 9. Vitamin D deficiency: Continue with supplementation. 10. Schizophrenia, paranoid type: As documented by psychiatry note in 2002. Continue with Risperdal. DISPOSITION: Admitted to the medical-surgical unit with remote telemetry. Pathology results not conclusive for overt malignancy. Tentatively scheduled bronchoscopy on Monday with pulmonology. Patient will need to NPO for procedure. [facility] has not currently been successful in finding anyone that is activley involved in patient's care in the community. Thoracentesis performed yesterday. Psychiatry has been consulted and will evaluate patient. VS, I&O, 24H, [facility] By [facility] Vital Signs/I&O Vital Signs Date Time Temp Pulse Resp B/P (MAP) Pulse Ox O2 Delivery O2 Flow Rate FiO2 03/09/17 06:00 97.0 82 20 129/65 (86) 96 Nasal Cannula 4.0 03/03/17 13:16 35 Laboratory Data 24H LABS Laboratory Tests 2 03/08/17 11:39: Bedside Glucose (Misc Panel) 206H 03/08/17 16:00: Body Fluid pH 7.758, Body Fluid pH Source PLEURAL, Body Fluid WBC (Auto) 2478H, Body Fluid RBC (Auto) 9, Body Fluid Mononuclear Cells % Auto 93.2H, Fluid Polymorphonuclear Cell % Auto 6.8H, Body Fluid Glucose Source PLEURAL, Body Fluid Glucose 149, Body Fluid Protein Source PLEURAL, Body Fluid Total Protein 1.3, Body Fluid Albumin Source PLEURAL, Body Fluid Albumin 0.5, Body Fluid LDH Source PLEURAL, Body Fluid Lactate Dehydrogenase 160, Body Fluid Amylase Source PLEURAL, Body Fluid Amylase 29, Body Fluid Cholesterol < 50, Body Fluid Cholesterol Source PLEURAL, Body Fluid Triglyceride Source PLEURAL, Body Fluid Triglycerides 4, Pleural Fluid Source PLEURAL, Pleural Fluid Color YELLOW, Pleural Fluid Appearance HAZY 03/08/17 16:43: Bedside Glucose (Misc Panel) 149H 03/08/17 20:43: Bedside Glucose (Misc Panel) 263H 03/09/17 00:01: Anion Gap , Glomerular Filtration Rate > 60.0, Blood Urea Nitrogen 13, Creatinine 0.97, Sodium Level 143, Potassium Level 3.3L, Chloride Level 93L, Carbon Dioxide Level 55H, Calcium Level 8.6L, Magnesium Level 2.2 03/09/17 06:52: Anion Gap 5L, Glomerular Filtration Rate > 60.0, Blood Urea Nitrogen 13, Creatinine 0.80, Sodium Level 143, Potassium Level 3.5, Chloride Level 95L, Carbon Dioxide Level 43H, Calcium Level 8.8, Immature Granulocyte % (Auto) 4.9H , White Blood Count 14.2H, Red Blood Count 3.54L, Hemoglobin 10.5L, Hematocrit 33.2L, Mean Corpuscular Volume 93.8, Mean Corpuscular Hemoglobin 29.7, Mean Corpuscular Hemoglobin Concent 31.6L, Red Cell Distribution Width 16.8H, Platelet Count 138L, Neutrophils (%) (Auto) 76.5H, Lymphocytes (%) (Auto) 13.2L , Monocytes (%) (Auto) 5.0, Eosinophils (%) (Auto) 0.1, Basophils (%) (Auto) 0.3 , Neutrophils # (Auto) 10.9H, Lymphocytes # (Auto) 1.9, Monocytes # (Auto) 0.7, Eosinophils # (Auto) 0.0, Basophils # (Auto) 0.0, Immature Granulocyte # (Auto) 0.7H, Nucleated Red Blood Cells % (auto) 1.9H, Aspartate Amino Transf (AST/SGOT ) 179H, Alanine Aminotransferase (ALT/SGPT) 270H, Alkaline Phosphatase 263H, Total Bilirubin 0.7, Total Protein 6.0L, Albumin 2.0L, Albumin/Globulin Ratio 0.50L CBC/BMP Laboratory Tests 03/09/17 00:01 Calcium Level 8.6 L 03/09/17 06:52 Calcium Level 8.8, Red Blood Count 3.54 L, Mean Corpuscular Volume 93.8, Mean Corpuscular Hemoglobin 29.7, Mean Corpuscular Hemoglobin Concent 31.6 L, Red Cell Distribution Width 16.8 H, Neutrophils (%) (Auto) 76.5 H, Lymphocytes (%) ( Auto) 13.2 L, Monocytes (%) (Auto) 5.0, Eosinophils (%) (Auto) 0.1, Basophils (% ) (Auto) 0.3, Neutrophils # (Auto) 10.9 H, Lymphocytes # (Auto) 1.9, Monocytes # (Auto) 0.7, Eosinophils # (Auto) 0.0, Basophils # (Auto) 0.0, Aspartate Amino Transf (AST/SGOT) 179 H, Alanine Aminotransferase (ALT/SGPT) 270 H, Alkaline Phosphatase 263 H, Total Bilirubin 0.7, Total Protein 6.0 L, Albumin 2.0 L Microbiology Microbiology 02/27/17 Blood Culture - Final, Complete NO GROWTH AFTER 5 DAYS 02/27/17 Blood Culture - Final, Complete NO GROWTH AFTER 5 DAYS 03/08/17 Acid Fast Stain, Received Pending 03/08/17 Mycobacterial Culture, Received Pending 03/08/17 Fungal Smear, Received Pending 03/08/17 Fungal Culture, Received Pending 03/08/17 Gram Stain - Final, Resulted 03/08/17 Anaerobic Culture, Resulted Pending 03/08/17 Body Fluid Culture, Received Pending 02/27/17 Influenza Virus Type A Antigen - Final, Complete 02/27/17 Influenza Virus Type B Antigen - Final, Complete 02/27/17 Urine Culture - Final, Complete PARISH MILLAN DO Mar 09, 2017 08:56
[2017-03-09] MEDS: SIMVASTATIN 20 MG TAB PO SCH (20:11)
[2017-03-09] MEDS: risperiDONE 3 MG TAB PO SCH (20:12)
[2017-03-09] MEDS ORDERED: METOPROLOL TART 25 MG TABLET PO ONE (22:15)
--- NOTE | 2017-03-09 22:20 | MHCR ---
DATE OF CONSULTATION: 03/09/2017 HISTORY OF PRESENT ILLNESS: This is a 61-year-old white man who has a history of schizophrenia who was admitted to the medical service with postobstructive pneumonia secondary to a right lung mass. Apparently, it seems that he has made it very clear that he wants to be a full code; however, it seems that he has been resistive to most of the diagnostic testing that the doctors have been trying to do although he apparently has ultimately consented to the testing. Apparently the biopsy that was done was non-confirmatory and he has a bronchoscopy scheduled for Monday and the concern is whether this patient really understands his medical condition at this point and the possible consequences of refusing the bronchoscopy or other potential testing that might be recommended in the future. When I saw the patient today, the patient tells me that he is in the hospital because he had fluid accumulation in his lungs and that he did have fluid removed and he is feeling better now. The patient did admit that he was aware about the mass that has been found in his lungs but only after I mentioned it. 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 I again explained the procedure to him. He was then able to repeat to me everything that I told him. He was able to tell me that it was his understanding that it is possible that the mass in his lungs may be malignant and that it can cause even possibly . He was able to understand how important that the bronchoscopy that is scheduled on Monday is and so at this point at least he seems to understand the medical condition and the risks of refusing further testing or treatment. At this point, he tells me that his mood is good, and I did not elicit any depressive symptomatology. I did not find that there were any problems with psychotic symptoms in this patient. PAST PSYCHIATRIC HISTORY: He does have a history of being treated in the past for schizophrenia and he says that he does remember [facility]. He remembers that he was transferred to [facility] and he says that after discharge from there that he has been living at [facility] apartments that he usually would share with another [facility] resident. It seems that he may now have an apartment, but apparently [facility] is still providing case management, but he does not know the case of the software qa manager. In addition, he tells me that he takes Risperdal. He is able to tell me the dose, 3 mg at bedtime, and he says that he is compliant with taking it. He says that he is not sure what it helps him with but he still takes it. He says that he sees a nurse practitioner, Mandie Wolfe, at the behavioral health clinic in [place]. I believe that she works for [facility]. FAMILY HISTORY: The patient denies any psychiatric illness in the family. SUBSTANCE ABUSE: He denies any problems with alcohol or drugs. MEDICAL HISTORY: The patient in addition to the right lung mass also has diabetes, chronic obstructive pulmonary disease (COPD), dyslipidemia, atrial fibrillation. MENTAL STATUS EXAMINATION: The patient is alert, oriented times three. She is pleasant, cooperative, verbally spontaneous. Eye contact is fairly good. He was lying in bed, but he was pleasant and cooperative and verbally spontaneous throughout. There was no formal thought disorder noted. He said that his mood was fine. His affect was constricted but appropriate to his mood. He is not psychotic, suicidal or homicidal. Concentration is fair. Memory is grossly intact. Insight and judgment good. DIAGNOSIS: Schizophrenia by history. TREATMENT RECOMMENDATION: At this point, I believe that the patient understands his current medical condition and he understands the consequences of refusing further diagnostic testing or treatment. I do think that this patient may possibly have some borderline intellect functioning, though he tells me that he was in regular classes at school. He completed up to 9th grade. He says that he did not need assistance with reading or writing. However, I do feel that it is important for every possible testing or treatment that is recommended that it be explained to him in very simple terms. Please reconsult if further problems arise.
[2017-03-10] VITALS (8 sets, daily range): BP systolic 102–145; BP diastolic 58–83
[2017-03-10] MEDS: IPRATROPIUM 0.5MG/ALBUTEROL 2.5MG INH SOL UD 3ML (DUONEB)(J7620) NEB SCH ×5 (00:04→19:42)
[2017-03-10] MEDS: PIPERACILLIN/TAZOBACTAM SOD 3.375 GM in APPROPRIATE DILUENT 1 EA IV SCH ×2 (00:49→06:20)
[2017-03-10] MEDS: SLF 3 ML SYR IV SCH ×3 (06:21→20:45)
[2017-03-10 07:00] LABS: MEAN CORPUSCULAR HGB CONC 31.3 g/dl (32.0-36.5); MEAN CORPUSCULAR VOLUME 95.9 fl (80.0-96.0); PLATELET COUNT, AUTOMATED 142 10^3/uL (150-450); RED CELL DISTRIBUTION WIDTH 17.3 % (11.5-14.5)
[2017-03-10 07:14] LABS: ADD MANUAL DIFFER YES; DIFF SLIDE NUMBER 27; POS COUNT POS FLAG; POSITIVE MORPH POS FLAG
[2017-03-10 07:17] LABS: ALBUMIN/GLOBULIN RATIO 0.53 (1.00-1.93); ALKALINE PHOSPHATASE 271 U/L (45-117); ALT/SGPT 235 U/L (12-78); AST/SGOT 149 U/L (7-37); BILIRUBIN,TOTAL 0.7 MG/DL (0.2-1.0); BLOOD UREA NITROGEN 13 MG/DL (7-18); CALCIUM LEVEL 9.2 MG/DL (8.8-10.2); CHLORIDE LEVEL 95 MEQ/L (98-107); CREATININE FOR GFR 0.74 MG/DL (0.70-1.30); GLOMERULAR FILTRATION RATE > 60.0 (>49); GLUCOSE, FASTING 112 MG/DL (80-110); POTASSIUM SERUM 3.7 MEQ/L (3.5-5.1); SODIUM LEVEL 145 MEQ/L (136-145); TOTAL PROTEIN 5.8 GM/DL (6.4-8.2)
[2017-03-10 07:25] LABS: ANISOCYTOSIS 1+; HYPOCHROMASIA 1+; PLATELET CLUMPS SMALL AMT
[2017-03-10 07:55] LABS: ANION GAP 0 MEQ/L (8-16); CARBON DIOXIDE LEVEL 50 MEQ/L (21-32)
--- NOTE | 2017-03-10 08:01 | ECGEPIP ---
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
[2017-03-10] MEDS: DIGOXIN 0.125 MG TAB PO SCH (08:27)
[2017-03-10] MEDS: METOPROLOL TART 25 MG TABLET PO SCH ×2 (08:27→20:44)
[2017-03-10] MEDS: ASPIRIN 81 MG ENTERIC TAB PO SCH (08:27)
[2017-03-10] MEDS: MAGNESIUM OXIDE 400 MG TAB (MAG-OX) PO SCH ×2 (08:27→20:44)
[2017-03-10] MEDS: PANTOPRAZOLE 40MG TAB (PROTONIX) PO SCH (08:27)
[2017-03-10] MEDS: LACTOBACILLUS ACIDOPHILUS CAP (BACID) PO SCH ×2 (08:27→20:43)
[2017-03-10] MEDS: HumaLOG INSULIN (NovoLOG) PER UNIT SC SCH ×4 (08:28→20:43)
[2017-03-10] MEDS: FUROSEMIDE 40 MG/4 ML VIAL (J1940) IV SCH ×2 (08:29→17:25)
--- NOTE | 2017-03-10 09:00 | IPNPDOC ---
Date Seen The patient was seen on 03/10/17. Progress Note SUBJECTIVE: Patient is a 61-year-old male with post-obstructive pneumonia secondary to right lung mass. Patient is evaluated at bedside this morning. He is completing breakfast at the time of my evaluation. Admits to anterior right-sided chest pain that he is unable to localize. Describes it as an ache. He has had the pain intermittently since having the thoracentesis. It does not radiate. He is unable to change the character by taking a deep breath. Patient is hypoxic on 4L of oxygen via nasal cannula. He feels as though his breathing has improved since the thoracentesis. Denies pain anywhere else. Denies fever, chills, night sweats, palpitations, abdominal pain , pinpoint vertebral pain. Psychiatry evaluated patient yesterday and patient is capable of making his own medical decisions. OBJECTIVE PHYSICAL EXAMINATION: VITAL SIGNS: Please see below. GENERAL: Obese male, somewhat raged appearing, appears older than stated age, wearing shirt and scrub bottoms, nasal cannula in place HEENT: Atraumatic, normocephalic, PERRL, EOMI, oral mucosa appears pink and moist, nasal septum with nasal cannula in place, nares are patent CARDIOVASCULAR: Cardiac sounds are appreciated, regular rate and rhythm, normal S1 and S2, no murmur, rub, click RESPIRATORY: Breath sounds are rhonchorous throughout, somewhat diminished on the right lower lung lobe, adequate inspiratory and expiratory airway excursion ABDOMINAL: Round, soft, non-tender, non-distended, no organomegaly, no rebound, no guarding, bowel sounds appreciated, small incision covered with 2x2 noted on the right back from thoracentesis EXTREMITIES: Dry skin appreciated, mild stasis dermatitis appreciated on lower extremities bilaterally, radial and posterior tibial pulses equal and symmetrical, +2, +2 pitting edema appreciated in bilateral lower extremities, dry skin appreciated on the upper extremities bilaterally, knee high compression stockings NEUROLOGICAL: CN II-XII grossly intact PSYCHOLOGICAL: Alert and conversant LABORATORY DATA: Please see below. MICROBIOLOGY: Please see below. DVT prophylaxis ordered?: TEDs and sequentials, knee high compression; Eliquis on hold for potential bronchoscopy on Monday. ASSESSMENT AND PLAN: This is a 61-year-old male with post-obstructive pneumonia secondary to right lung mass. PROBLEMS: 1. Tachycardia: Patient has remained chronically and intermittently tachycardic with mild exertion. Metoprolol has been increased which has appeared to improve heart rate. Patient has paroxysmal atrial fibrillation and on Digoxin. Continue with remote telemetry. Could consider discussing with cardiology if heart rate remains difficult to control. 2. Right-sided chest pain with hypoxia: Does not appear to be pleuritic in nature. Thoracentesis recently performed. Patient is hypoxic on 4L via NC. Obtaining chest x-ray. Continue with oxygenation, Lasix. 3. Pleural effusion, right-sided: Thoracentesis performed. 1.5L of red- colored fluid removed. Pleural fluid analysis is pending. SAAG 1.6 which could represents malignancy, congestive heart failure, or portal hypertension. 4. Diarrhea: Patient continues to have increased number of bowel movements. Remains on Bacid. GI panel is pending. 5. Right upper quadrant abdominal pain: Resolved. Rib fractures of 7th and 9th right ribs are noted on imaging that are noted on admission imaging. 6. Post-obstructive pneumonia with large pleural effusion: IV antibiotics have been discontinued. Started oral Avelox. Continues with a leukocytosis ( improved) which could be reactive and less likely infectious due to large lung mass and question about primary/metastatic malignancy in the liver. Patient has remained afebrile. Remains on Lasix twice a day. Monitor blood pressure. 7. Lung mass: CT-guided biopsy performed. Pathology did not reveal any overt malignancy. Tentatively scheduled for bronchoscopy on Monday with pulmonology. Patient will need to be NPO prior to procedure on Monday. 8. Paroxysmal atrial fibrillation: Eliquis has remained on hold as patient is tentatively scheduled for Monday. Continue with Digoxin. Increased Metoprolol. Monitor blood pressure. 9. Diabetes mellitus: Sliding scale insulin, fingersticks before meals and at bedtime, hypoglycemic protocol. 10. COPD: Continue with Atrovent. 11. Dyslipidemia: Continue with Simvastatin. 12. Vitamin D deficiency: Continue with supplementation. 13. Schizophrenia, paranoid type: As documented by psychiatry note in 2002. Continue with Risperdal. DISPOSITION: Admitted to the medical-surgical unit with remote telemetry. Psychiatry has evaluated patient and he is capable of making his own medical decisions. Pending pleural fluid analysis. Tentative bronchoscopy scheduled for Monday. Patient will need to NPO on Monday for procedure on Monday. PT has recommended continued therapy after discharge and that he is not safe for discharge at this time. VS, I&O, 24H, Fishbone Vital Signs/I&O Vital Signs Date Time Temp Pulse Resp B/P (MAP) Pulse Ox O2 Delivery O2 Flow Rate FiO2 03/10/17 08:27 91 146/79 03/10/17 06:00 97.3 20 95 Nasal Cannula 4.0 I&O- Last 24 Hours up to 6 AM 03/11/17 06:00 Intake Total 30 ml Balance 30 ml Laboratory Data 24H LABS Laboratory Tests 2 03/09/17 11:21: Bedside Glucose (Misc Panel) 222H 03/09/17 17:04: Bedside Glucose (Misc Panel) 186H 03/09/17 20:04: Bedside Glucose (Misc Panel) 196H 03/10/17 06:43: Immature Granulocyte % (Auto) , Nucleated Red Blood Cells % (auto) 1.7H, Neutrophils 66, Lymphocytes (Manual) 21, Monocytes (Manual) 10H, Metamyelocytes 3H, Platelet Estimate NORMAL, Clumped Platelets SMALL AMT, Hypochromasia 1+, Anisocytosis 1+, Anion Gap 0L, Glomerular Filtration Rate > 60.0, Blood Urea Nitrogen 13, Creatinine 0.74, Sodium Level 145, Potassium Level 3.7, Chloride Level 95L, Carbon Dioxide Level 50H, Calcium Level 9.2, Aspartate Amino Transf ( AST/SGOT) 149H, Alanine Aminotransferase (ALT/SGPT) 235H, Alkaline Phosphatase 271H, Total Bilirubin 0.7, Total Protein 5.8L, Albumin 2.0L, Albumin/Globulin Ratio 0.53L 03/10/17 07:43: Bedside Glucose (Misc Panel) 140H CBC/BMP Laboratory Tests 03/10/17 06:43 Red Blood Count 3.40 L, Mean Corpuscular Volume 95.9, Mean Corpuscular Hemoglobin 30.0, Mean Corpuscular Hemoglobin Concent 31.3 L, Red Cell Distribution Width 17.3 H, Calcium Level 9.2, Aspartate Amino Transf (AST/SGOT) 149 H, Alanine Aminotransferase (ALT/SGPT) 235 H, Alkaline Phosphatase 271 H, Total Bilirubin 0.7, Total Protein 5.8 L, Albumin 2.0 L Microbiology Microbiology 03/08/17 Acid Fast Stain, Received Pending 03/08/17 Mycobacterial Culture, Received Pending 03/08/17 Fungal Smear, Received Pending 03/08/17 Fungal Culture, Received Pending 03/08/17 Gram Stain - Final, Resulted 03/08/17 Anaerobic Culture, Resulted Pending 03/08/17 Body Fluid Culture, Received Pending PARISH MILLAN DO Mar 10, 2017 09:00
--- NOTE | 2017-03-10 09:34 | REP ---
Clinical: Continued right-sided chest pain. Comparison: 03/08/2017. Findings: Large right pleural effusion with underlying elements of consolidation/atelectasis have improved from prior examination. The left hemithorax remains stable. Visualized mediastinum and cardiac silhouette stable. Skeletal structures are unchanged with continued evidence for right-sided rib fractures. Impression: 1. Large but improved right pleural effusion with underlying consolidation/atelectasis. Left hemithorax appears stable and within normal limits. 2. Right rib fractures again identified. Signed by Sid Mckinnon MD 03/10/2017 09:25 A
[2017-03-10] MEDS ORDERED: ISOVUE-370 76% 100ML VIAL (Q9967) As Ordered ONE (17:43)
--- NOTE | 2017-03-10 18:40 | REPUSA ---
CT of the chest with contrast Clinical statement: malignancy. Technique: Multiple axial CT images were obtained with 5 mm cuts through the chest after administrati on of nonionic intravenous contrast. Coronal and sagittal reconstructions were also obtained. Comparison: 02/27/2017. Findings: There is no thoracic lymphadenopathy. The visualized portions of the thyroid gland is unrem arkable. The central pulmonary arteries are unremarkable. The thoracic aorta is within normal limits. There is a moderate right-sided pleural effusion with severe compressive atelectasis of the right lo wer lung. There is a masslike consolidation extending from the right hilum into the right lung, measu ring approximately 14.0 x 8.8 x 14.3 cm. The mass extends into the precarinal mediastinal space. Ther e is severe narrowing of the right main stem bronchus. Patchy infiltrates are seen in the right upper lobe. The left lung is clear. Limited imaging of the upper abdomen demonstrates an enlarged liver, w ith ill-defined hypodense lesion infiltrating the left hepatic parenchyma, predominately in the left lobe. There are no suspicious osseous lesions. There is an old healed fracture in the right lateral 7 th rib. Impression: 1. No significant change in the size and appearance of the large right hilar mass. 2. Moderate right-sided pleural effusion and right lower lobe atelectasis remains. 3. Minimal increase in right upper lobe infiltrate. 4. Ill-defined low attenuation nodularity of the liver is suspicious for metastatic disease. Dedicate d CT of the abdomen and pelvis is recommended.
[2017-03-10] MEDS ORDERED: DIGO0.12 PO (18:46)
[2017-03-10] MEDS ORDERED: INSUHUMDS SC ×2 (18:46)
[2017-03-10] MEDS ORDERED: IPRASOL4 NEB (18:46)
[2017-03-10] MEDS ORDERED: ASPI81TAEC PO (18:46)
[2017-03-10] MEDS ORDERED: GLUC4CHW PO (18:46)
[2017-03-10] MEDS ORDERED: AVEL1TAB3 PO (18:46)
[2017-03-10] MEDS ORDERED: DEXT50IN6 IV (18:46)
[2017-03-10] MEDS ORDERED: Acetaminophen Tab PO (18:46)
[2017-03-10] MEDS ORDERED: GLUC1VL SC (18:46)
[2017-03-10] MEDS ORDERED: MAG400TA PO (18:46)
[2017-03-10] MEDS ORDERED: METO1TAB87 PO (18:46)
[2017-03-10] MEDS ORDERED: FURO40VL IV (18:46)
[2017-03-10] MEDS ORDERED: ALB2.5NEB NEB (18:46)
[2017-03-10] MEDS ORDERED: RISATAB3 PO (18:47)
[2017-03-10] MEDS ORDERED: PNEU0.5I IM (18:47)
[2017-03-10] MEDS ORDERED: PANT40TA2 PO (18:47)
[2017-03-10] MEDS ORDERED: SLF3ML IV ×2 (18:47)
[2017-03-10] MEDS ORDERED: FLUZ1INJ IM (18:47)
[2017-03-10] MEDS ORDERED: RISP3TAB20 PO (18:47)
[2017-03-10] MEDS ORDERED: SIMV20TA2 PO (18:47)
--- NOTE | 2017-03-10 19:25 | REP ---
CT HEAD WITHOUT AND WITH CONTRAST: HISTORY: Malignancy. CONTRAST: Isovue 370, 75 mL. Areas of decreased attenuation are present in the periventricular white matter. This represents small vessel ischemic disease. There is no intraparenchymal hemorrhage, mass, or midline shift. There is no abnormal enhancement. The ventricular system and cortical sulci are dilated consistent with minimal volume loss. There is no extracerebral collection. Mucosal thickening is present in the sphenoid sinus. IMPRESSION: 1. Small vessel ischemic disease. 2. Minimal volume loss. Signed by Po Campbell MD 03/10/2017 07:31 P
--- NOTE | 2017-03-10 19:52 | DS.PDOC ---
Discharge Summary General Date of Admission Feb 27, 2017 at 15:34 Date of Discharge 03/10/2017 Attending Physician: MIKA ANDERSON MD Specialist/Consultants Involve: Joe SOLIS MD Specialist/Consultants Involve Psychiatry: Dr. Smith Discharge Summary PROCEDURES PERFORMED DURING STAY: Transesophageal echocardiogram CONCLUSIONS: Normal left ventricular size, wall thickness and hyperkinetic wall motion. Normal left atrial size and Doppler assessment of LV diastolic function. At least mildly dilated right heart chambers with normal contraction with Doppler evidence of at least moderate pulmonary hypertension. Mildly dilated inferior vena cava, but normal respiratory collapse against an elevated central venous pressure at this time. Thoracentesis needle placement under ultrasound - 03/08/17 An #8-Armenian multisidehole catheter was inserted using trocar technique. 1500 mL of red-colored fluid was withdrawn and sent to the lab. The patient tolerated the procedure well and there were no immediate complications. ADMITTING DIAGNOSES: 1. Newly diagnosed atrial fibrillation with rapid ventricular rate. 2. Sepsis secondary to post-obstructive pneumonia. SECONDARY DIAGNOSES: 1. Diabetes. 2. Dyslipidemia. 3. Chronic obstructive pulmonary disease. 4. Vitamin D deficiency. 5. Schizophrenia, paranoid type. DISCHARGE DIAGNOSES: 1. Metastatic small cell carcinoma. 2. Hypoxia. 3. Pleural effusion. 4. Paroxysmal atrial fibrillation with rapid ventricular rate. 5. Diarrhea secondary to antibiotic use. COMPLICATIONS/CHIEF COMPLAINT: Atrial Fibrillation,Hypotension,Neoplasm Of [place]. HISTORY OF PRESENT ILLNESS: Patient is a 61-year-old male with a PMHx of who presented to the ER with complaint of difficulty breathing. In the emergency room patient was found to have atrial fibrillation with rapid ventricular response at 150s and his BP was hypotensive at SBP of 60s. He was given a dose of digoxin IV and started on IV fluid hydration. After 1 hour, patients blood pressure had normalized and high rate had improved to 100s. Lab work indicated patient had elevation in creatinine, as well as white blood cell count and lactic acid. Imaging via CT chest was acquired in emergency room showed that he had a new right-sided lung mass. Hospitalist team was called for admission. Patient has noted that hes been having a productive cough with white colored sputum without any evidence of blood. He noted that he denied any chest pain, or palpitations. He did have difficulty breathing initially that has improved. He denied any fevers or chills at home. He denies any nausea, vomiting, abdominal pain or constipation. He does note that the last time he had a bowel movement, he had diarrhea. Patient has also noted some discomfort with urination. It has been noted that the patient has had 43 pound weight loss over the last 2 months. His appetite is normal. Patient is noted to have a significant smoking history over 200 pack years. HOSPITAL COURSE: Patient was admitted to the intensive care unit for dyspnea likely secondary to new onset atrial fibrillation. Received IV Digoxin in the ED. Heart rate and blood pressure improved. Echocardiogram was obtained with result reported above. Metoprolol 12.5mg IV every six hours was started and eventually switched to by mouth and increased to 25mg and then 50mg by mouth twice a day to control tachycardia. Heparin drip was started, switched to therapeutic Lovenox, and eventually Eliquis. Anticoagulation was temporarily discontinued as patient was tentatively scheduled for a bronchoscopy. Admitting diagnosis of sepsis secondary to post-obstructive pneumonia. Lactic acidosis and leukocytosis. No fever. Blood cultures obtained and were negative. Gave IVF resuscitation and started IV Vancomycin and Zosyn. Switched to Moxifloxacin. Obtained CT-guided lung mass biopsy which unfortunately was inconclusive. Patient stablized sufficiently to be transferred out of the ICU and into PCU. Patient became hypoxic requiring non- invasive mechanical ventilation. Transferred back to the ICU. Pulmonology/ critical care was consulted. Recommended decreasing anticholinergic, avoiding steroids, continuing with bronchdilators, and continuing judiciously with diuresis. Patient clinically improved and was transferred to the medical- surgical unit with remote telemetry. During entire admission patient would intermittently become tachycardic with even minimal movement. It would improve immediately upon rest. Daily labs indicated a rise in liver function tests and patient was eventually convinced to obtain a CT of the abdomen and pelvis which revealed either primary or metastatic maligancy. Due to underlying pathology patient developed a pleural effusion and subsequently underwent a thoracentesis with 1.5L of red-colored fluid drained. Cytology revealed "highly cellular specimen consisting of groups of single malignant cells exhibiting high n/c ratios and nuclear molding, favor small cell carcinoma." Pleural fluid cell block revealed "Clusters of malignant cells are noted in a background of abundant lymphocytes and mesothelial cells, consistent with metastatic small cell carcinoma. Note: The tumor cells are positive for TTF-1, Synaptophysin and focally positive for P63. CK5/6 decorated background mesothelial cells. This immunoprofile support the morphologic impression of small cell carcinoma, metastatic." Once this new diagnosis was made a call was placed to medical oncology for further guidance. It was recommended that radiation oncology be contacted as patient would possibly require in-patient radiation with chemotherapy. Unfortunately our facility does not provide in-patient radiation oncology and it was decided that a transfer be placed to a tertiary facility in order to provide the necessary care. Patient was accepted in transfer to [facility] with the accepting physician being Dr. Boris Chacon. Diabetes, COPD, dyslipidemia, gastroesophageal reflux disease were all managed appropriately. Throughout admission patient would be inconsistent with decision making. Due to his living arrangements prior to hospitalization and with no known community contact psychiatry was asked to evaluate patient for capacity. He was deemed capable of making his own medical decisions. It was recommended that discussions with patient be made using simple terms. DISCHARGE MEDICATIONS: Please see below. ALLERGIES: Please see below. PHYSICAL EXAMINATION ON DISCHARGE: VITAL SIGNS: Please see below. GENERAL: Obese male, somewhat raged appearing, appears older than stated age, wearing shirt and scrub bottoms, nasal cannula in place HEENT: Atraumatic, normocephalic, PERRL, EOMI, oral mucosa appears pink and moist, nasal septum with nasal cannula in place, nares are patent CARDIOVASCULAR: Cardiac sounds are appreciated, regular rate and rhythm, normal S1 and S2, no murmur, rub, click RESPIRATORY: Breath sounds are rhonchorous throughout, somewhat diminished on the right lower lung lobe, adequate inspiratory and expiratory airway excursion ABDOMINAL: Round, soft, non-tender, non-distended, no organomegaly, no rebound, no guarding, bowel sounds appreciated, small incision covered with 2x2 noted on the right back from thoracentesis EXTREMITIES: Dry skin appreciated, mild stasis dermatitis appreciated on lower extremities bilaterally, radial and posterior tibial pulses equal and symmetrical, +2, +2 pitting edema appreciated in bilateral lower extremities, dry skin appreciated on the upper extremities bilaterally, knee high compression stockings NEUROLOGICAL: CN II-XII grossly intact PSYCHOLOGICAL: Alert and conversant LABORATORY DATA: Please see below. IMAGING: Portable chest x-ray - 02/27/17 IMPRESSION: There is cardiomegaly. There is vascular congestion. There is a large right pleural effusion with a small left pleural effusion. There is bibasilar infiltrate. Findings are probably on the basis of congestive heart failure and pulmonary edema, but underlying pneumonia cannot be excluded. CT chest without contrast - 02/27/17 IMPRESSION: Mediastinal and right lung mass appears to infiltrate the jillian and right mainstem bronchus along with multiple subsequent bronchi causing postobstructive consolidations. Associated adenopathy and small/moderate right pleural effusion are identified. Findings are neoplastic unless proven otherwise. CT guided needle placement - 03/01/17 IMPRESSION: Uncomplicated CT-guided right lung mass biopsy yielding four core biopsy specimens. The results are pending. Post-biopsy chest x-ray - 03/01/17 Single view of the chest is performed status post right lung biopsy. There is no pneumothorax. There is a large right effusion with adjacent right lung consolidation. No definite infiltrate is seen on the left. Duplex ultrasound of right lower extremity - 03/02/17 IMPRESSION: No evidence for deep venous thrombosis. Portable chest x-ray - 03/02/17 IMPRESSION: Findings suggesting increased right pleural effusion and consolidation. Portable chest x-ray - 03/08/17 IMPRESSION: 1. Enlarged cardiac silhouette. 2. Pulmonary venous congestion compatible with CHF. 3. Complete opacification of the right hemithorax. Probably large left pleural effusion with passive atelectatic airspace disease in the right lung. CT abdomen and pelvis with IV and oral contrast - 03/08/17 IMPRESSION: 1. Very subtle infiltrating process to the liver is suggested along with lymph nodes in the makayla hepatis measuring up to 3 cm concerning for primary malignancy and/or metastatic disease. Consider follow-up contrast-enhanced MRI or CT using liver mass protocol. 2. Large right pleural effusion with partial collapse to the visualized right middle lobe and right lower lobe along with left perihilar and lingular atelectasis. Portable chest x-ray - 03/08/17 IMPRESSION: No pneumothorax seen. Nearly completely opacified right hemithorax. There are fractures of the right 7th and 9th lateral ribs segments again noted. These are unchanged from February 27, [address] Post-thoracentesis chest x-ray - 03/08/17 FINDINGS: The left lung remains unchanged and well inflated. There is improved right pleural effusion. This is best visualized adjacent to the small amount of aeration in the right upper lobe superiorly and laterally. However, the right hemithorax remains largely opacified due to postobstructive consolidation in the right lung. The right mainstem bronchial silhouette is amputated abruptly. There is no evidence of pneumothorax or other complication. Chest x-ray, two view, PA and lateral - 03/10/17 IMPRESSION: 1. Large but improved right pleural effusion with underlying consolidation/ atelectasis. Left hemithorax appears stable and within normal limits. 2. Right rib fractures again identified. CT chest with contrast - 03/10/17 IMPRESSION: 1. No significant change in the size and appearance of the large right hilar mass. 2. Moderate right-sided pleural effusion and right lower lobe atelectasis remains. 3. Minimal increase in right upper lobe infiltrate. 4. Ill-defined low attenuation nodularity of the liver is suspicious for metastatic disease. Dedicated CT of the abdomen and pelvis is recommended. CT head without contrast followed by with contrast - 03/10/17 IMPRESSION: Pending PROGNOSIS: Stable at time of transfer, but overall poor prognosis. ACTIVITY: Ambulate with walker. DIET: Consistent carbohydrate. DISCHARGE PLAN: See below DISPOSITION: Transfer to [facility] - Dr. Boris Chacno is the accepting physician. DISCHARGE INSTRUCTIONS: 1. Continue current medications. 2. Transfer to [facility] for ongoing medical care. ITEMS TO FOLLOWUP ON ON OUTPATIENT: 1. Metastatic small cell carcinoma. DISCHARGE CONDITION: Stable at time of transfer, but overall poor prognosis. TIME SPENT ON DISCHARGE: Greater than 45 minutes. Vital Signs/I&Os Vital Signs Date Time Temp Pulse Resp B/P (MAP) Pulse Ox O2 Delivery O2 Flow Rate FiO2 03/10/17 18:00 98.4 99 18 133/69 (90) 97 Nasal Cannula 4.0 I&O- Last 24 Hours up to 6 AM 03/11/17 06:00 Intake Total 810 ml Output Total 1300 ml Balance -490 ml Laboratory Data Labs 24H Laboratory Tests 2 03/09/17 20:04: Bedside Glucose (Misc Panel) 196H 03/10/17 06:43: Immature Granulocyte % (Auto) , Nucleated Red Blood Cells % (auto) 1.7H, Neutrophils 66, Lymphocytes (Manual) 21, Monocytes (Manual) 10H, Metamyelocytes 3H, Platelet Estimate NORMAL, Clumped Platelets SMALL AMT, Hypochromasia 1+, Anisocytosis 1+, Anion Gap 0L, Glomerular Filtration Rate > 60.0, Blood Urea Nitrogen 13, Creatinine 0.74, Sodium Level 145, Potassium Level 3.7, Chloride Level 95L, Carbon Dioxide Level 50H, Calcium Level 9.2, Aspartate Amino Transf ( AST/SGOT) 149H, Alanine Aminotransferase (ALT/SGPT) 235H, Alkaline Phosphatase 271H, Total Bilirubin 0.7, Total Protein 5.8L, Albumin 2.0L, Albumin/Globulin Ratio 0.53L 03/10/17 07:43: Bedside Glucose (Misc Panel) 140H 03/10/17 11:58: Bedside Glucose (Misc Panel) 176H 03/10/17 16:51: Bedside Glucose (Misc Panel) 216H CBC/BMP Laboratory Tests 03/10/17 06:43 Red Blood Count 3.40 L, Mean Corpuscular Volume 95.9, Mean Corpuscular Hemoglobin 30.0, Mean Corpuscular Hemoglobin Concent 31.3 L, Red Cell Distribution Width 17.3 H, Calcium Level 9.2, Aspartate Amino Transf (AST/SGOT) 149 H, Alanine Aminotransferase (ALT/SGPT) 235 H, Alkaline Phosphatase 271 H, Total Bilirubin 0.7, Total Protein 5.8 L, Albumin 2.0 L FSBS Laboratory Tests Test 03/09/17 20:04 03/10/17 07:43 03/10/17 11:58 03/10/17 16:51 Range/Units Bedside Glucose (Misc Panel) 196 140 176 216 80-115 MG/DL Microbiology Microbiology 03/08/17 Acid Fast Stain, Received Pending 03/08/17 Mycobacterial Culture, Received Pending 03/08/17 Fungal Smear, Received Pending 03/08/17 Fungal Culture, Received Pending 03/08/17 Gram Stain - Final, Complete 03/08/17 Anaerobic Culture - Final, Complete 03/08/17 Body Fluid Culture - Final, Complete 03/10/17 Gastrointestinal Tract Panel (PCR) - Final, Complete Discharge Medications Scheduled (Digoxin) 125 Mcg Tab, 0.125 MG PO DAILY (Ana-Bid Probiotic) 1 Tab Tab, 2 EA PO BID (Fluzone Quadrivalent 2017 0.5 ml) 1 Inj Inj, 0.5 ML IM ASDIRECTED (Pneumovax 23) 25 Mcg/0.5 Ml Inj, 0.5 ML IM ASDIRECTED Albuterol/Ipratropium (Ipratropium Woodson/Albut 0.5-2.5 (3) mg/3Ml) 1 Ana Ana, 3 ML NEB RQ6H Aspirin (Aspirin EC) 81 Mg Tabec, 81 MG PO DAILY Furosemide (Furosemide) 10 Mg/Ml Inj, 40 MG IV BID@0900,1700 Insulin Human Lispro (Humalog) 1 Units/0.01 Ml Inj, 0 UNITS SC AC Insulin Human Lispro (Humalog) 1 Units/0.01 Ml Inj, 0 UNITS SC QHS Magnesium Oxide (Magnesium Oxide) 400 Mg Tab, 400 MG PO BID Metoprolol Tartrate (Metoprolol Tartrate) 25 Mg Tab, 50 MG PO BID Moxifloxacin Hydrochloride (Avelox) 400 Mg Tab, 400 MG PO DAILY@06 Pantoprazole Sodium (Pantoprazole Sodium) 40 Mg Tab, 40 MG PO DAILY Risperidone (Risperdal) 3 Mg Tab, 3 MG PO QHS Simvastatin (Simvastatin) 20 Mg Tab, 20 MG PO QHS Sodium Chloride (Normal Saline Flush) 3 Ml Soln, 2 ML IV SLF Scheduled PRN Albuterol Sulfate (Albuterol Sulfate) 2.5 Mg/0.5 Ml Neb, 2.5 MG NEB Q2HP PRN for SOB/WHEEZING Dextrose (Dextrose 50%) 50 % Inj, 25 ML IV ASDIRECTED PRN for SEE LABEL COMMENTS Glucagon (Glucagen Diagnostic) 1 Mg Inj, 1 MG SC ASDIRECTED PRN for SEE LABEL COMMENTS Glucose (Glucose) 4 Gm Chw, 0 GM PO ASDIRECTED PRN for SEE LABEL COMMENTS Sodium Chloride (Normal Saline Flush) 3 Ml Soln, 2 ML IV ASDIRECTED PRN for SEE LABEL COMMENTS [Acetaminophen Tab] 325 MG/TAB TAB, 650 MG PO Q4HP PRN for MILD PAIN OR FEVER Allergies Coded Allergies: No Known Allergies (Unverified , 02/27/17) PARISH MILLAN DO Mar 10, 2017 19:52 MIKA ANDERSON MD Mar 11, 2017 06:40
[2017-03-10] MEDS: ACETAMINOPHEN TAB 650MG DOSE (2X325MG) PO PRN (20:43)
[2017-03-10] MEDS: risperiDONE 3 MG TAB PO SCH (20:44)
[2017-03-10] MEDS: SIMVASTATIN 20 MG TAB PO SCH (20:44)
[2017-03-11] MEDS ORDERED: MOXIFLOXACIN 400 MG TAB PO SCH (06:00)
== END 2017-03-10 23:20 | disposition short-term general hospital (02) | DRG 136 ==
LOC: M ED 12:03 → M ED INP 15:34 → M ICU 17:45 → M PCU 03-01 15:41 → M ICU 03-02 20:36 → M MSPAV 03-06 10:45
PROVIDERS: ADMIT Internal Medicine; ATTEND General Practice
PROC: 0W993ZX Drainage of Right Pleural Cavity, Percutaneous Approach, Diagnostic (ICD-10-PCS; 2017-02-28)
PROC: 0BBK8ZX Excision of Right Lung, Via Natural or Artificial Opening Endoscopic, Diagnostic (ICD-10-PCS; principal; 2017-03-01)
DX: C34.01 Malignant neoplasm of right main bronchus (principal); J96.02 Acute respiratory failure with hypercapnia; J91.0 Malignant pleural effusion; J18.9 Pneumonia, unspecified organism; I95.9 Hypotension, unspecified; E55.9 Vitamin D deficiency, unspecified; E83.42 Hypomagnesemia; J44.9 Chronic obstructive pulmonary disease, unspecified; I48.0 Paroxysmal atrial fibrillation; C38.1 Malignant neoplasm of anterior mediastinum; R19.7 Diarrhea, unspecified; E78.5 Hyperlipidemia, unspecified; F20.0 Paranoid schizophrenia; Z79.4 Long term (current) use of insulin; Z79.899 Other long term (current) drug therapy; F17.200 Nicotine dependence, unspecified, uncomplicated; M54.5 Low back pain; M19.90 Unspecified osteoarthritis, unspecified site; G47.00 Insomnia, unspecified